=== PATIENT | male | born 1980 | race Caucasian/White ===

== ENCOUNTER 2024-10-12 22:04 | Emergency (ER) | payer MEDICAID, SELFPAY ==
--- OUTSIDE RECORDS SUMMARY | 2014-05-15 05:00 | XMS_ITS | Continuity of Care Document ---
Author Organization [facility] Address [address] [place] [address] Phone Care Team Providers Care Manager Human Capital Name Role Phone Solomon Sloan Unavailable Unavailable Allergies, Adverse Reactions, Alerts Substance Reaction Status Criticality aspirin Active No Information Medications Medication Instructions Dosage Effective Dates (start - stop) Status Comments methadone 10 mg/mL oral concentrate take 3 milliliter by oral route every 8 hours 30 MG - Active omeprazole 40 mg capsule,delayed release take 1 capsule by oral route every day 40 MG - Active Colace 100 mg capsule take 1 capsule by oral route 2 times every day as needed 100 MG - Active amitriptyline 50 mg tablet take 1 tablet by oral route every day at bedtime 50 MG - Active buspirone 15 mg tablet take 1 tablet by oral route 2 times every day 15 MG - Active Celexa 20 mg tablet take 1 Tablet by ora l route every day 20 MG - Active Procedures Procedure Date OFFICE/OUTPATIENT VISIT, NEW Results Test Name Date and Time Measure Units Reference Range Abnormal Flag Status Comments Panel Description: TSH+Free T4 Final TSH 07:36:00 0.826 uIU/mL 0.450-4.500 Final Performed by:LabBren Harrell () T4,Free(Direct) 07:36:00 1.22 ng/dL 0.82-1.77 Final Performed by:LabCojuliann Harrell () Panel Description: CBC With Differential/Platele t Final WBC 05:56:00 5.8 x10E3/uL 3.4-10.8 Final Performed by:Ladonna Harrell () RBC 15 05:56:00 4.34 x10E6/uL 4.14-5.80 Final Performed by:Ladonna Harrell () Hemoglobin 15 05:56:00 13.3 g/dL 12.6-17.7 Final Performed by:Ladonna Harrell () Hematocrit 15 05:56:00 39.8 % 37.5-51.0 Final Performed by:Ladonna Harrell () MCV 15 05:56:00 92 fL 79-97 Final Performed by:Ladonna Harrell () MCH 15 05:56:00 30.6 pg 26.6-33.0 Final Performed by:Ladonna Harrell () MCHC 15 05:56:00 33.4 g/dL 31.5-35.7 Final Performed by:Ladonna Harrell () RDW 15 05:56:00 13.9 % 12.3-15.4 Final Performed by:Ladonna Harrell () Platelets 15 05:56:00 187 x10E3/uL 150-379 Final Performed by:Ladonna Harrell () Neutrophils 15 05:56:00 56 % Final Performed by:Ladonna Harrell () Lymphs 15 05:56:00 33 % Final Performed by:Ladonna Harrell () Monocytes 15 05:56:00 8 % Final Performed by:Ladonna Harrell () Eos 15 05:56:00 2 % Final Performed by:Ladonna Harrell () Basos 15 05:56:00 1 % Final Performed by:Ladonna Harrell () Immature Cells 15 05:56:00 Final Performed by:Ladonna Harrell () Neutrophils (Absolute) 15 05:56:00 3.3 x10E3/uL 1.4-7.0 Final Performed by:Ladonna Harrell () Lymphs (Absolute) 05:56:00 2.0 x10E3/uL 0.7-3.1 Final Performed by:Ladonna Harrell () Monocytes(Absolut e) 05:56:00 0.4 x10E3/uL 0.1-0.9 Final Performed by:Ladonna Harrell () Eos (Absolute) 05:56:00 0.1 x10E3/uL 0.0-0.4 Final Performed by:Ladonna Harrell () Baso (Absolute) 05:56:00 0.0 x10E3/uL 0.0-0.2 Final Performed by:Ladonna Harrell () Immature Granulocytes 05:56:00 0 % Final Performed by:Ladonna Harrell () Immature Grans (Abs) 05:56:00 0.0 x10E3/uL 0.0-0.1 Final Performed by:Ladonna Harrell () NRBC 05:56:00 Final Performed by:Ladonna Harrell () Hematology Comments: 05:56:00 Final Performed by:Ladonna Harrell () Panel Description: Comp. Metabolic Panel (14) F inal Glucose, Serum 09:10:00 85 mg/dL 65-99 Final Performed by:Ladonna Harrell () BUN 09:10:00 13 mg/dL 6-20 Final Performed by:Ladonna Harrell () Creatinine, Serum 09:42:00 0.92 mg/dL 0.76-1.27 Final Performed by:Ladonna Harrell () eGFR If NonAfricn Am 09:42:00 110 mL/min/1 .73 >59 Final Performed by:Ladonna Harrell () eGFR If Africn Am 09:42:00 127 mL/min/1 .73 >59 Final Performed by:Ladonna Harrell () BUN/Creatinine Ratio Mar-26-20 15 09:42:00 14 8-19 Final Performed by:Ladonna Harrell () Sodium, Serum 08:56:00 141 mmol/L 134-144 Final Performed by:Ladonna Harrell () Potassium, Serum 08:56:00 4.6 mmol/L 3.5-5.2 Final Performed by:Ladonna Harrell () Chloride, Serum 08:56:00 100 mmol/L 97-108 Final Performed by:Ladonna Harrell () Carbon Dioxide, Total 09:42:00 26 mmol/L 18-29 Final Performed by:Ladonna Harrell () Calcium, Serum 08:56:00 9.3 mg/dL 8.7-10.2 Final Performed by:Ladonna Harrell () Protein, Total, Serum 09:10:00 7.2 g/dL 6.0-8.5 Final Performed by:Ladonna Harrell () Albumin, Serum 09:10:00 4.3 g/dL 3.5-5.5 Final Performed by:Ladonna Harrell () Globulin, Total 09:10:00 2.9 g/dL 1.5-4.5 Final Performed by:Ladonna Harrell () A/G Ratio 09:10:00 1.5 1.1-2.5 Final Performed by:Ladonna Harrell () Bilirubin, Total 09:10:00 0.4 mg/dL 0.0-1.2 Final Performed by:Ladonna Harrell () Alkaline Phosphatase, S 09:10:00 54 IU/L 39-117 Final Performed by:Ladonna Harrell () AST (SGOT) 09:10:00 73 IU/L 0-40 H Final Performed by:Ladonna Harrell () ALT (SGPT) 09:10:00 88 IU/L 0-44 H Final Performed by:Ladonna Harrell () Panel Description: Lipid Panel Final Cholesterol, Total 09:42:00 104 mg/dL 100-199 Final Performed by:Ladonna Harrell () Triglycerides 09:42:00 105 mg/dL 0-149 Final Performed by:Ladonna Harrell () HDL Cholesterol 09:42:00 47 mg/dL >39 Final According to ATP-III Guidelines, HDL-C >59 mg/dL is considered anegative risk factor for CHD.Performed by:Ladonna Harrell () VLDL Cholesterol Sandip 09:42:00 21 mg/dL 5-40 Final Performed by:Ladonna Harrell () LDL Cholesterol Calc 09:42:00 36 mg/dL 0-99 Final Performed by:Ladonna Harrell () Comment: 09:42:00 Final Performed by:Ladonna Harrell () Advance Directives Directive Yes / No Effective Date File Name No Information Encounters Encounter Description Practice Location Reason(s) For Visit Diagnoses Date Provider OFFICE/OUTPATI ENT VISIT, [facility], [address] [place] [address], [address], [place] tel:[phone] [facility] Yearly Physical (chief complaint)Po ssible Hernia (chief complaint) Hepatitis CAnxietyHernia of abdominal wallPhysical exam, routine [address] [place], [address], [place]. tel:[phone] Family History Family Member Type Diagnosis Age At Onset No Information Payers Payer name Insurance type Covered democrat ID Authoriza tion(s) Nereida [facility] Med [facility] [id number] [facility] [id number] Social History Type Description Quantity Date Captured Comments Alcohol Use Details No Caffeine Use Details soda 16 oz per day Tobacco Use Status Occasional cigarette smoker Smoking Status Heavy tobacco smoker Smoking Tobacco Use Details Cigarette: Age Started: 15, Years Used 19, Cigarette: 1 Packs per day, Pack Year: 18 Sex Male Vital Signs Date / Time: Height Weight BMI Pulse Rate Blood Pressure Temperature Respiratory Rate Body Surface Area Head Circumference Head Circ. Percentile Wt./Jabier. Percentile BMI percentile Pulse Ox Inhaled Ox 9:35 AM 72.00 in 76.748 kg (169.20 lbs) 22.9 5 kg/m eter (2) 67 /min 126/67 mm[Hg] 97.50 F 1.97 meter(2) Chief Complaint And Reason For Visit From encounter dated '05/15/2014 09:00'. Yearly Physical (chief complaint) Possible Hernia (chief complaint). Description: Possible hernia around navel. History Of Present Illness Encounter Date Complaint History Of Prese nt Illness Possible Hernia Possible hernia around navel. Yearly Physical Instructions Date Instruction Additional Infor heriberto No Information Assessments Type Assessment Date assessment Hepatitis C assessment Anxiety assessment Hernia of abdominal wall 2014 assessment Physical exam, routine 15 impression start buspar 15 mg b id, celexa 20 mg qd and amitryptiline 50 mg qhs. impression refer to general surgery 2014 impression check labs. Mental Status Date Cognitive Assessment Orientation - Rolla ed to time, place, person, situation.
--- OUTSIDE RECORDS SUMMARY | 2024-09-27 09:15 | XMS_ITS | Continuity of Care Document ---
Author Organization [facility] Address [address] [place] [phone] Phone Care Team Providers Care Information Security Consultant Name Role Phone Funmilayo Ogden DDS Unavailable Unavailable Allergies, Adverse Reactions, Alerts Substance Reaction Status Criticality No Known Allergies Active No Inform ation Procedures Procedure Date Bitewig-single Film Yubufhdbl-wqepaxcjsz-vpuf Additional Sep Oral Hygiene Instruction Limited Oral Eval Advance Directives Directive Yes / No Effective Date File Name No Information Encounters Encounter Description Practice Location Reason(s) For Visit Diagnoses Date Provider Providers Copied on Encounter [facility], [address] [place] [address], [id number], tel:[phone] Dental Clinic dl (chief complaint) No Information Melvi ESPAÑAS Funmilayo. . tel:[phone] [facility], [address] [place] [address], [id number], tel:[phone] Dental Clinic Encounter for screening for dental disorders Melvi ESPAÑAS Funmilayo. . tel:[phone] Family History Family Member Type Diagnosis Age At Onset No Information Payers Payer name Insurance type Covered alliance party ID Authorfainaa gopal(s) D [employer] Medicaid [employer] [facility] [id number] [id number] D Medicaid Wrap - [facility] [id number] Social History Type Description Quantity Date Captured Comments Alcohol Use Details Unknown Caffeine Use Details Unknown Tobacco Use Status No Information Smoking Status No Information Sex Male Chief Complaint And Reason For Visit From encounter dated 09/27/2024 13:15'. dl (chief complaint). Description: dl Reason For Referral Reason For Referral No Information Plan Of Treatment Date Type Action Status Goal PRAPARE ASSESSMENT. Due on A due Goal Lipid panel. Due on 025 due Goal Tdap Vaccine. Due on 2024 due Goal Hep A. Due on du e Goal Hepatitis C screening. Due o n due Goal Influenza vaccine. Due on Au due Goal Unhealthy drug use screening . Due on due Goal Tdap. Due on due Goal RLP. Due on due Goal Depression screening. Due on due History Of Present Illness Encounter Date Complaint History Of Prese nt Illness dl dl Functional Status Date Functional Assessmen t No Information Instructions Date Instruction Additional Infor mation No Information Assessments Type Assessment Date No Information Patient Care Teams Name Effective Dates (start - stop) Status Members No Information
--- OUTSIDE RECORDS SUMMARY | 2024-10-12 22:24 | XMS_ITS | Clinical Summary ---
Author Organization [facility] Address [address] [place] [address] Phone Care Team Providers Care Recording Studio Internship Name Role Phone Siddharth MIXON, Ry Unavailable [phone] Conditions or Problems No information available. Medications No information available. Medications Administered No information available. Allergies, Adverse Reactions, Alerts No information available. Results No information available. Plan of Care No information available. Procedures No information available. Vital Signs No information available. Immunizations No information available. Advance Directives No information available.
--- OUTSIDE RECORDS SUMMARY | 2024-10-12 22:24 | XMS_ITS | Encounter Summary ---
Author Organization [facility] Address [address] [place] [address] Phone Care Team Providers Care Residential Energy Auditor Name Role Phone Ry Messina MD Unavailable [phone] Pcp, None Primary Care Provider [phone] Jace Jacome MD Primary Care Provider [phone] Jace Jacome MD Primary Care Provider [phone] Encounter Details Date Type Department Care Team (Late st Contact Info) Description 12/06/2022 Orders Only [facility] E[facility] [address] [place] [address] Cierra Britt Chest pain, unspecified type Social History Tobacco Use Types Packs/Day Years Used Date Smoking Tobacco: Every Day Cigarettes Smokeless Tobacco: Current Snuff Alcohol Use Standard Drinks/Week Comments Not Currently 0 (1 standard drink = 0.6 oz pur e alcohol) sober since 2006 Sex and Gender Information Value Date Recorded Sex Assigned at Not on file Legal Sex Male 7:10 PM EDT Gender Identity Male 06/02/2018 10:31 PM EDT Sexual Orientation Not on file COVID-19 Exposure Response Date Recorded In the last 10 days, have yo u been in contact with someone who was confirmed or suspected to have Coronavirus/COVID-19? No / Unsure 12/04/2022 1:30 AM EDT documented as of this encounter Functional Status * Are you deaf or do you have serious difficulty hearing? Answer Date of Assessment Author No 12/04/2022 6:03 AM EDT Peyton Brunson Registered Nurse * Are you blind or do you have serious difficulty seeing, even when wearing glasses? Answer Date of Assessment Author No 12/04/2022 6:03 AM EDT Peyton Brunson Registered Nurse * Do you have serious difficulty walking or climbing stairs? (5 years old or older) Answer Date of Assessment Author No 12/04/2022 6:03 AM EDT Peyton Brunson Registered Nurse * Do you have difficulty dressing or bathing? (5 years old or older) Answer Date of Assessment Author No 12/04/2022 6:03 AM EDT Peyton Brunson Registered Nurse * Because of a physical, mental, or emotional condition, do you have difficulty doing errands alone such as visiting a doctor???s office or shopping? (15 years old or older) Answer Date of Assessment Author No 12/04/2022 6:03 AM EDT Peyton Brunson Registered Nurse documented as of this encounter Mental Status * Because of a physical, mental, or emotional condition, do you have serious difficulty concentrating, remembering, or making decisions? (5 years old or older) Answer Entry Date Author No 12/04/2022 6:03 AM EDT Peyton Brunson Registered Nurse documented in this encounter Plan of Treatment Not on file documented as of this encounter Procedures Procedure Name Priority Date/Time Associated Diagnosis Comments ECG 12-LEAD Routine 12/04/2022 2:03 AM EDT Chest pain, unspecified type documented in this encounter Results * ECG 12 lead (12/04/2022 2:03 AM EDT) Height in TH TRACEMASTER HEART RATE 63 bpm TH TRACEMASTER RR INTERVAL 948 ms TH TRACEMASTER ATRIAL RATE 61 ms TH TRACEMASTER P-R Interval 437 ms TH TRACEMASTER P Duration 190 ms TH TRACEMASTER P HORIZONTAL 38 deg TH TRACEMASTER P FRONT AXIS 55 deg TH TRACEMASTER Q Onset 502 ms TH TRACEMASTER QRSD Interval 173 ms TH TRACEMASTER QT INTERVAL 488 ms TH TRACEMASTER QTCB 501 ms TH TRACEMASTER QTcF 497 ms TH TRACEMASTER QRS [place] 100 deg TH TRACEMASTER QRS AXIS 44 deg TH TRACEMASTER I-40 [place] 45 deg TH TRACEMASTER I-40 FRONT AXIS 71 deg TH TRACEMASTER T-40 [place] 148 deg TH TRACEMASTER T-40 [place] 195 deg TH TRACEMASTER T [place] 250 deg TH TRACEMASTER T WAVE AXIS 217 deg TH TRACEMASTER S-T [place] 240 deg TH TRACEMASTER S-T [place] 247 deg TH TRACEMASTER ECG IMPRESSION - ABNORMAL ECG - TH TRACEMASTER ECG IMPRESSION SR-Sinus rhythm-normal P axis, V-rate 50-99 TH TRACEMASTER ECG IMPRESSION VPC-Ventricul ar premature complex-V complex w/ short R-R interval TH TRACEMASTER ECG IMPRESSION 1AVB-Prolonge d RI interval-RI >210, V-rate 50-90 TH TRACEMASTER ECG IMPRESSION RBBB-Right bundle branch block-QRSd>12 0, terminal axis(90,270) TH TRACEMASTER ECG IMPRESSION REPIDI-Repol abnrm suggests ischemia, diffuse leads-ST-T neg, ant/lat/inf TH TRACEMASTER ECG IMPRESSION QMBW-Baseline wander in lead(s) V4- TH TRACEMASTER ECGGUID [id number] TH TRACEMASTER ECGGUID [id number] TH TRACEMASTER 12/04/2022 2:03 AM EDT us Grabiel Ragland Jr., MD ECG ORDERABLES Fin al Result TH TRACEMASTER documented in this encounter Visit Diagnoses Diagnosis Chest pain, unspecified type documented in this encounter Additional Health Concerns Infection Onset Date Last Indicated Resolved Time COVID-19 Suspect 09/17/2023 09/17/2023 09/17/2023 2:29 AM EDT documented as of this encounter Care Teams Residential Energy Auditor Relationship Specialty Start Date End Date Pcp, None, PCP - General Internal Medicine 12/04/22 04/18/23 Jace Jacome MD PCP - General Internal Medicine 04/19/23 05/02/24 Jace Jacome MD PCP - General Internal Medicine 05/03/24 Ry Messina MD Neurosurgery 06/30/20 documented as of this encounter
--- OUTSIDE RECORDS SUMMARY | 2024-10-12 22:24 | XMS_ITS | Encounter Summary ---
Author Organization [facility] Address [address] [place] [address] Care Team Providers Care Radiologic Technologist Chief Name Role Phone Pcp, No Primary Care Provider Source Comments This information has been disclosed to you from confidential records protectfrom disclosure by state law. You shall make no further disclosure of thisinformation without the specific, written, and informed release of theindividual to whom it pertains, or as otherwise permitted by law. A generalauthorization for the release of medical or other information is not sufficientfor the purposes of the release of HIV test results or diagnoses. [id number] Health Encounter Details Date Type Department Care Team (Latest Contact Info) Description 07/31/2024 Results Follow-Up [facility] Psychiatry at [facility] [address] [place] [address] Delmis Burns, [employer] [address] [place] [address] Urine Drug Confirmation w/o [facility] Social History Tobacco Use Types Packs/Day Years Used Date Smoking Tobacco: Every Day Cigarettes 1.5 30 Smokeless Tobacco: Current Chew Alcohol Use Standard Drinks/Week Comments Not Currently 0 (1 standard drink = 0.6 oz pur e alcohol) None since September 06, 2006 AUDIT-C Answer Date Recorded Q1: How often do you have a drink containing alc ohol? Patient declined 05/18/2024 Q2: How many drinks containi ng alcohol do you have on a typical day when you are drinking? Patient declined 05/18/2024 Q3: How often do you have si x or more drinks on one occasion? Patient declined 05/18/2024 PHQ-2 Answer Date Recorded PHQ-2 Total Score 3 07/27/2024 Hunger Vital Sign Answer Date Recorded Within the past 12 months, y ou worried that your food would run out before you got the money to buy more. Never true 06/27/19 22 Within the past 12 months, t he food you bought just didn't last and you didn't have money to get more. Never true 06/26/2021 Sex and Gender Information Value Date Recorded Sex Assigned at Male 11/11/2020 12:16 PM EDT Legal Sex Male 5:15 PM EST Gender Identity Male 11/11/2020 12:16 PM EDT Sexual Orientation Straight 06/24/2021 12 :10 PM EDT documented as of this encounter Plan of Treatment Not on file documented as of this encounter Visit Diagnoses Not on filedocumented in this encounter Additional Health Concerns Assessment Noted Time PHQ-9 Depression Total Score: 16 025 12:27 PM EDT documented as of this encounter Care Teams Radiologic Technologist Chief Relationship Specialty Start Date End Date Pcp, No [address] [place] [address] PCP - General 05/21/22 documented as of this encounter
--- OUTSIDE RECORDS SUMMARY | 2024-10-12 22:24 | XMS_ITS | Clinical Summary ---
Author Organization [facility] Address [address] [place] [address] Care Team Providers Care Permanent Mold Supervisor Name Role Phone Pcp, No Primary Care Provider [phone] Source Comments This information has been disclosed to you from confidential records protectedfrom disclosure by state law. You shall make no further disclosure of thisinformation without the specific, written, and informed release of theindividual to whom it pertains, or as otherwise permitted by law. A generalauthorization for the release of medical or other information is not sufficientfor the purposes of therelease of HIV test results or diagnoses. [id number] Allergies Active Allergy Reactions Criticality Noted Date Comments Propoxyphene N-Acetaminophen Nausea And Vomiting,Rash Low 12/07/2017 Ondansetron Hcl Rash Low 06/25/2021 Propoxyphene Nausea And Vomiting,Rash Low 12/10/2017 Darvocet (propoxyphene-aceta minophen) Darvocet (propoxyphene-aceta minophen) Medications catheter 6-16 Fr- MiscIndications :Dysuria Use as directed by your urologist. 530 each 03/05/2023 Active buprenorphine HCL (SUBUTEX) [address] 20 mg under the tongue daily. Place 2.5 tablets daily under the tongue, may split dose. 07/18/2024 Active Active Problems Problem Noted Date Diagnosed Date History of posttraumatic stress disorder (PTSD) 08/03/2024 Polysubstance (excluding opioids) dependence 03/2023 Chest pain 04/21/2023 Chronic hepatitis C without hepatic coma 022 Elevated liver enzymes 06/26/2021 Substance-induced psychotic disorder 02/04/2018 Substance induced mood disorder 02/01/2018 Closed fracture of metacarpal bone 07/15/2009 Overview (11/20/2014): third left hand ICD-10 Transition Encounters Date Type Department Care Team Description 08/26/2024 1:45 AM EDT - 08/26/2024 4:42 AM EDT Emergency [facility] Emergency Department [address] [place], [place] [address]Michel[place] [address] Encounter for medical screening examination (Primary Dx) Discharge Disposition: ED Dismiss - Left Before Treatment 08/26/2024 Travel 08/06/2024 Telephone [facility] Psychiatry at [address] [address] Rosario Julien 08/03/2024 2:13 PM EDT - 08/03/2024 2:55 PM EDT Emergency [facility] Emergency Department [address] [place] [address] Substance-induced psychotic disorder (CMS-HCC) (Primary Dx); Polysubstance (excluding opioids) dependence (CMS-HCC); Other chest pain; History of posttraumatic stress disorder (PTSD) Discharge Disposition: Home or Self Care WITHOUT Home Care Services 08/03/2024 5:15 AM EDT - 08/03/2024 1:21 PM EDT Emergency [facility] Emergency Department [address] [place] [id number] Ab Wilde MD Paranoimarlene (CMS-HCC) (Primary Dx) Discharge Disposition: Psychiatric Hospital or Unit 08/03/2024 Travel 07/31/2024 Results Follow-Up [facility] Psychiatry at [facility] [address] [place] [address] Delmis Burns APRN Urine Drug Confirmation w/o THC 07/31/2024 Refill [facility] Psychiatry at [facility] [address] [place] [address] Delmis Burns APRN 07/27/2024 10:50 AM EDT Specimen [facility] [address] [facility] [address] [place] [phone] Delmis Burns APRN Generalized anxiety disorder with panic attacks 07/27/2024 9:00 AM EDT Office Visit [facility] Psychiatry at [facility] [address] [facility] [address] [place] [address] Delmis Burns APRN Generalized anxiety disorder with panic attacks (Primary Dx); Mild episode of recurrent major depressive disorder (CMS-HCC); PTSD (post-traumatic stress disorder); Insomnia, unspecified type; Substance use disorder from Last 3 Months Family History Medical History Relation Comments Bipolar disorder Mother Panic disorder Mother Post-traumatic stress disorder Mother Relation Status Comments Brother 1 Alive Brother 2 Alive Father Mother Alive Sister Alive Social History Tobacco Use Types Packs/Day Years Used Date Smoking Tobacco: Every Day Cigarettes 1.5 30 Smokeless Tobacco: Current Chew Tobacco Cessation:Ready to Q uit: Not Asked; Counseling Given: Not Answered Alcohol Use Standard Drinks/Week Comments Not Currently [...] Orientation Straight 06/24/2021 12 :10 PM EDT Last Filed Vital Signs Vital Sign Reading Time Taken Comments Blood Pressure 178/106 08/26/2024 1:50 AM EDT Pulse 111 08/26/2024 1:50 AM EDT Temperature 37.3 C (99.2 F) 08/26/2024 1:50 AM EDT Respiratory Rate 20 08/26/2024 1:50 AM EDT Oxygen Saturation 98% 08/26/2024 1:50 AM EDT Inhaled Oxygen Concentration 98% 08/26/2024 1 :50 AM EDT Weight 117.5 kg (259 lb) 07/27/2024 9:09 AM EDT Height 180.3 cm (5' 11 ) 07/27/2024 9:09 AM EDT Body Mass Index 36.12 07/27/2024 9:09 AM EDT Plan of Treatment Health Maintenance Due Date Last Done Comments Immunization: Pneumococcal ( 1 of 2 - PCV) 2000 Tobacco Cessation Readiness 04/17/2022 04/17/2021 Immunization: COVID-19 ( season) 2023 04/02/2020, 03/12/2020 Diabetes Screening 04/20/2024 04/21/2023 Immunization: Influenza (MyC hutchinson) (#1) 2024 Depression Monitoring (PHQ-9) 10/27/2024 07/27/2024 Immunization: DTaP/Tdap/Td ( 5 - Td or Tdap) 12/05/2029 12/06/2019, 07/22/1983, 10/21/1982, Additional history exists HIV Screening Completed 04/21/2023, 03/24, 03/17/2023, Additional history exists Procedures Procedure Name Priority Date/Time Associated Diagnosis Comments EKG - SCAN 08/04/2024 12:40 PM EDT URINALYSIS, MICROSCOPIC STAT 08/03/2024 1:12 PM EDT URINE DRUG SCREEN WITHOUT CONFIRMATION, STAT STAT 08/03/2024 1:12 PM EDT URINALYSIS-MACROSCOPI C W/REFLEX TO MICROSCOPIC STAT 08/03/2024 1:12 PM EDT HIGH SENSITIVITY TROPONIN STAT 08/03/2024 8:04 AM EDT MAGNESIUM STAT 08/03/2024 6:41 AM EDT HIGH SENSITIVITY TROPONIN STAT 08/03/2024 6:41 AM EDT HEPATIC FUNCTION PANEL STAT 08/03/2024 6:41 AM EDT BASIC METABOLIC PANEL STAT 08/03/2024 6:41 AM EDT DIFFERENTIAL STAT 08/03/2024 6:41 AM EDT CBC STAT 08/03/2024 6:41 AM EDT XR PORTABLE CHEST RICH 08/03/2024 6:1 4 AM EDT ED ECG 12-LEAD (MUSE) STAT 08/03/2024 5:39 AM EDT URINE DRUG CONFIRMATION W/O THC Routine 07/27/2024 11:08 AM EDT Generalized anxiety disorder with panic attacks HEMOGLOBIN A1C Routine 04/21/2023 9:11 AM EST HIV 1+2 ANTIBODY/ANTIGEN WITH REFLEX Routine 04/21/2023 2:37 AM EST from Last 3 Months or Most Recently Relevant to Health Maintenance Results * EKG - scan (08/04/2024 12:40 PM EDT) us Scanning Uchhi SCAN DOCS - NO RESULTS Final Res ult * (ABNORMAL) Urinalysis, Microscopic (08/03/2024 1:12 PM EDT) RBC, UA 2 0 - 3 /HPF 08/03/2024 2:49 PM EDT [facility] WBC, UA 2 0 - 5 /HPF 08/03/2024 2:49 PM EDT [facility] Bacteria, UA Few(A) None Seen /HPF 08/03/2024 2:49 PM EDT [facility] Hyaline Casts, UA 5(H) 0 - 2 /LPF 08/03/2024 2:49 PM EDT [facility] Mucus, UA Present(A) None Seen /HPF 08/03/2024 2:49 PM EDT [facility] Amorphous, UA Present(A) None Seen /HPF 08/03/2024 2:49 PM EDT [facility] Urine 08/03/2024 1:12 PM EDT 08/03/2024 1:21 PM EDT us Gabriella Levy MD URINE ORDERABLES Final Result [facility] [address] [id number], [facility] * (ABNORMAL) Urinalysis-Macroscopic w/Rfx to Microsco (08/03/2024 1:12 PM EDT) Color, UA Yellow Yellow,Straw 08/03/2024 3:19 PM EDT [facility] Clarity, UA Clear Clear 08/03/2024 3:19 PM EDT [facility] Specific Fisk, UA >=1.030 1.005 - 1.035 08/03/2024 3:19 PM EDT [facility] pH, UA 5.5 5.0 - 8.0 08/03/2024 3:19 PM EDT [facility] Protein, UA 30 mg/dL(A) Negative mg/dL 08/03/2024 3:19 PM EDT [facility] Glucose, UA Negative Negative mg/dL 08/03/2024 3:19 PM EDT [facility] Ketones, UA 15 mg/dL(A) Negative mg/dL 08/03/2024 3:19 PM EDT [facility] Bilirubin, UA Negative Negative 08/03/2024 3:19 PM EDT [facility] Blood, UA Negative Negative 08/03/2024 3:19 PM EDT [facility] Nitrite, UA Negative Negative 08/03/2024 3:19 PM EDT [facility] Urobilinogen, UA 0.2 E.U./dL 0.2 - 1.0 EU/dL 08/03/2024 3:19 PM EDT [facility] Leukocyte Esterase, UA Negative Negative 08/03/2024 3:19 PM EDT [facility] Urine 08/03/2024 1:12 PM EDT 08/03/2024 1:19 PM EDT Gabriella Levy MD URINE ORDERABLES Final Result Performing Organization Address City/State/[facility] Co de Phone Number [facility] [address] [place] [address], [facility] * (ABNORMAL) Urine Drug Screen w/o Confirmation,Stat (08/03/2024 1:12 PM EDT) Fentanyl, 5 ng/ml Cutoff Negative Negative 08/03/2024 1:55 PM EDT [facility] Amphetamine, 500 ng/mL Cutoff Presumptive Positive(A) Negative 08/03/2024 1:55 PM EDT [facility] Barbiturates UR, 300 ng/mL Cutoff Negative Negative 08/03/2024 1:55 PM EDT [facility] Buprenorphine, 5 ng/mL Cutoff Presumptive Positive(A) Negative 08/03/2024 1:55 PM EDT [facility] Benzodiazepines UR, 300 ng/mL Cutoff Presumptive Positive(A) Negative 08/03/2024 1:55 PM EDT [facility] Cocaine UR, 300 ng/mL Cutoff Negative Negative 08/03/2024 1:55 PM EDT [facility] Methadone, UR, 300 ng/mL Cutoff Negative Negative 08/03/2024 1:55 PM EDT [facility] Opiates UR, 300 ng/mL Cutoff Negative Negative 08/03/2024 1:55 PM EDT [facility] Oxycodone, 100 ng/mL Cutoff Negative Negative 08/03/2024 1:55 PM EDT [facility] Tricyclic Antidepressants, 300 ng/mL Cutoff Negative Negative 08/03/2024 1:55 PM EDT [facility] Comment:This test has been d eveloped and its performance characteristics determined by [facility] which is certified under the Clinical Laboratory Improvement Amendment of 1988 (CLIA-88) to perform high complexity testing. The test has not been cleared or approved by the US Food and Drug Administration (FDA). The FDA has determined that such clearance is not necessary. The test should be used for clinical purposes and is not regarded as investigational. THC UR, 50 ng/mL Cutoff Negative Negative 08/03/2024 1:55 PM EDT [facility] Comment:This is a screening method only and may be associated with false positive and/or false negative results. Results are not definitive without additional confirmatory testing by mass spectrometry. Urine 08/03/2024 1:12 PM EDT 08/03/2024 1:22 PM EDT Gabriella Levy MD URINE ORDERABLES Final Result Performing Organization Address [facility] de Phone Number [facility] [address] [place] [address]. [address] * High Sensitivity Troponin (60min) (08/03/2024 8:04 AM EDT) Only the most recent of2 resultswithin the time period is included. Pathologist [facility] High Sensitivity Troponin 4 0 - 20 ng/L 08/03/2024 8:47 AM EDT [facility] Serum 08/03/2024 8:04 AM EDT 08/03/2024 8:14 AM EDT Narrative [facility] - 08/03/2024 8:47 AM EDT Please draw 60min after time that first troponin is drawn. Gabriella Levy MD LAB BLOOD ORDERABLES Final Resul t Performing Organization Address City/[facility] de Phone Number [facility] [address] [place] [address]. [address] * Hepatic Function Panel (08/03/2024 6:41 AM EDT) Total Bilirubin 0.4 0.0 - 1.5 mg/dL 08/03/2024 7:22 AM EDT [facility] Bilirubin, Direct 0.09 0.00 - 0.40 mg/dL 08/03/2024 7:22 AM EDT [facility] AST 30 13 - 39 U/L 08/03/2024 7:22 AM EDT [facility] ALT 16 7 - 52 U/L 08/03/2024 7:22 AM EDT [facility] Alkaline Phosphatase 70 36 - 125 U/L 08/03/2024 7:22 AM EDT [facility] Total Protein 7.5 6.4 - 8.9 g/dL 08/03/2024 7:22 AM EDT [facility] Albumin 4.5 3.5 - 5.7 g/dL 08/03/2024 7:22 AM EDT [facility] Bilirubin, Indirect 0.31 0.00 - 1.10 mg/dL 08/03/2024 7:22 AM EDT [facility] Plasma 08/03/2024 6:41 AM EDT 08/03/2024 6:49 AM EDT us Gabriella Levy MD LAB BLOOD ORDERABLES Final Resul t [facility] [address] * (ABNORMAL) Differential (08/03/2024 6:41 AM EDT) Neutrophils Relative 80.7(H) 40.0 - 80.0 % 08/03/2024 6:59 AM EDT [facility] Lymphocytes Relative 12.6(L) 15.0 - 45.0 % 08/03/2024 6:59 AM EDT [facility] Monocytes Relative 5.6 0.0 - 12.0 % 08/03/2024 6:59 AM EDT [facility] Eosinophils Relative 0.7 0.0 - 8.0 % 08/03/2024 6:59 AM EDT [facility] Basophils Relative 0.4 0.0 - 1.0 % 08/03/2024 6:59 AM EDT [facility] nRBC 0 0 - 0 /100 WBC 08/03/2024 6:59 AM EDT [facility] Neutrophils Absolute 3,954 1,520 - 8,640 /uL 08/03/2024 6:59 AM EDT [facility] Lymphocytes Absolute 617 570 - 4,860 /uL 08/03/2024 6:59 AM EDT [facility] Monocytes Absolute 274 0 - 1,296 /uL 08/03/2024 6:59 AM EDT [facility] Eosinophils Absolute 34 0 - 864 /uL 08/03/2024 6:59 AM EDT [facility] Basophils Absolute 20 0 - 108 /uL 08/03/2024 6:59 AM EDT [facility] Whole Blood 08/03/2024 6:41 AM EDT 08/03/2024 6:49 AM EDT us Gabriella Levy MD LAB BLOOD ORDERABLES Final Resul t [facility] [address] [place] [address], [facility] * (ABNORMAL) CBC (08/03/2024 6:41 AM EDT) WBC 4.9 3.8 - 10.8 10E3/uL 08/03/2024 6:59 AM EDT [facility] RBC 4.26 4.20 - 5.80 10E6/uL 08/03/2024 6:59 AM EDT [facility] Hemoglobin 12.9(L) 13.2 - 17.1 g/dL 08/03/2024 6:59 AM EDT [facility] Hematocrit 36.6(L) 38.5 - 50.0 % 08/03/2024 6:59 AM EDT [facility] MCV 85.8 80.0 - 100.0 fL 08/03/2024 6:59 AM EDT [facility] MCH 30.2 27.0 - 33.0 pg 08/03/2024 6:59 AM EDT [facility] MCHC 35.2 32.0 - 36.0 g/dL 08/03/2024 6:59 AM EDT [facility] RDW 13.8 11.0 - 15.0 % 08/03/2024 6:59 AM EDT [facility] Platelets 165 140 - 400 10E3/uL 08/03/2024 6:59 AM EDT [facility] MPV 9.0 7.5 - 11.5 fL 08/03/2024 6:59 AM EDT [facility] Whole Blood 08/03/2024 6:41 AM EDT 08/03/2024 6:49 AM EDT Gabriella Levy MD LAB BLOOD ORDERABLES Final Resul t [facility] [address] [facility] * Magnesium (08/03/2024 6:41 AM EDT) Magnesium 2.0 1.5 - 2.5 mg/dL 08/03/2024 7:22 AM EDT [facility] Plasma 08/03/2024 6:41 AM EDT 08/03/2024 6:49 AM EDT Gabriella Levy MD LAB BLOOD ORDERABLES Final Resul t Performing Organization Address [facility] Co de Phone Number [facility] [address] [facility] * (ABNORMAL) Basic metabolic panel (08/03/2024 6:41 AM EDT) Sodium 142 133 - 146 mmol/L 08/03/2024 7:22 AM EDT [facility] Potassium 3.6 3.5 - 5.3 mmol/L 08/03/2024 7:22 AM EDT [facility] Chloride 106 98 - 110 mmol/L 08/03/2024 7:22 AM EDT [facility] CO2 25 21 - 33 mmol/L 08/03/2024 7:22 AM EDT [facility] Anion Gap 11 3 - 16 mmol/L 08/03/2024 7:22 AM EDT [facility] BUN 17 7 - 25 mg/dL 08/03/2024 7:22 AM EDT [facility] Creatinine 0.89 0.60 - 1.30 mg/dL 08/03/2024 7:22 AM EDT [facility] Glucose 106(H) 70 - 100 mg/dL 08/03/2024 7:22 AM EDT [facility] Calcium 9.5 8.6 - 10.3 mg/dL 08/03/2024 7:22 AM EDT [facility] Osmolality, Calculated 296 278 - 305 mOsm/kg 08/03/2024 7:22 AM EDT [facility] EGFR >90 08/03/2024 7:22 AM EDT [facility] Comment: As of 2021, the estimated GFR is calculated using the 2020 Chronic Kidney Disease Epidemiology Collaboration (CKD-EPI) equation. In line with the NKF-ASN Task Force Recommendations, this equation does not include a coefficient for race. A single eGFR value is calculated for each patient. The reference interval is >60 mL/min/1.73m2. eGFR values greater than 90 will be reported as >90mL/min/1.73m2. Reference: Simon C, Deo M, Stanley DC, Eugene [place], Tyler [place], Valerie [place], et al. A Unifying Approach for GFR Estimation: Recommendations of the NKF-ASN Task Force on Reassessing the inclusion of Race in Diagnosing Kidney Disease. Am J Kidney Dis. 2020. GFR is estimated using creatinine, age, and sex. Patient's values should be interpreted as a trend. Below 90 mL/min/1.73m2, the patient may have renal disease. For additional information: www.kidney.org Plasma 08/03/2024 6:41 AM EDT 08/03/2024 6:49 AM EDT Gabriella Levy MD LAB BLOOD ORDERABLES Final Resul t [facility] [address] [place], [place] [address] * X-ray Portable Chest (08/03/2024 6:14 AM EDT) Anatomical Region Laterality Modality Chest Radiographic Brenda ging 08/03/2024 5:38 AM EDT Impressions 08/03/2024 6:56 AM EDT IMPRESSION: No acute cardiopulmonary abnormality. Approved by [place] Galicia DO on 08/03/2024 6:24 AM EDT I have personally reviewed the images and I agree with this report. Report Verified by: Valentín Hall DO at 08/03/2024 6:56 AM EDT Narrative 08/03/2024 6:56 AM EDT EXAM: XR PORTABLE CHEST INDICATION: Chest pain, unspecified TECHNIQUE: 1 view of the chest. COMPARISON: 04/30/2024 FINDINGS: Medical Devices: None. Heart and Mediastinum: Cardiomediastinal silhouette is within normal limits. Lungs and Pleura: Hypoexpanded lungs with mild bibasilar parenchymal opacities, likely atelectasis. No pleural effusions or evidence for pneumothorax. Bones and soft tissues: No acute abnormalities. Procedure Note Gilson Hall DO - 08/03/2024 EXAM: XR PORTABLE CHEST INDICATION: Chest pain, unspecified TECHNIQUE: 1 view of the chest. COMPARISON: 04/30/2024 FINDINGS: Medical Devices: None. Heart and Mediastinum: Cardiomediastinal silhouette is within normallimits. Lungs and Pleura: Hypoexpanded lungs with mild bibasilar parenchymalopacities, likely atelectasis. No pleural effusions or evidence forpneumothorax. Bones and soft tissues: No acute abnormalities. IMPRESSION: No acute cardiopulmonary abnormality. Approved by [place] Galicia DO on 08/03/2024 6:24 AM EDT I have personally reviewed the images and I agree with this report. Report Verified by: Valentín Hall DO at 08/03/2024 6:56 AM EDT us Gabriella Levy MD IMG DIAGNOSTIC IMAGING ORDERABLE S Final Result * ECG for indication of chest pain (08/03/2024 5:39 AM EDT) 08/03/2024 5:39 AM EDT Narrative MUSE - 08/03/2024 8:14 AM EDT Ventricular Rate: 133 BPM Atrial Rate: 133 BPM P-R Interval: 136 ms QRS Duration: 82 ms QT: 390 ms QTc: 580 ms P [place]: 58 degrees R [place]: 45 degrees T [place]: 73 degrees Diagnosis Line: ^ INTERPRETATION NOT AVAILABLE--ECG READ IN ER ^ Confirmed by PHYSICIAN, ER ([id number]), business editor Vickie Chi ([id number]) on 08/03/2024 8:13:59 AM us Gabriella Levy MD ECG ORDERABLES Final Result MUSE * Urine Drug Confirmation w/o THC (07/27/2024 11:08 AM EDT) BARBITURATES NOT PRESENT 07/31/2024 1:58 PM EDT [facility] BENZODIAZEPINES PRESENT 5 1:58 PM EDT [facility] Nordiazepam 9 ng/mL 07/31/2024 1:58 PM EDT [facility] Oxazepam 122 ng/mL 07/31/2024 1:58 PM EDT [facility] Temazepam 11 ng/mL 07/31/2024 1:58 PM EDT [facility] LEVEL VIAL INSIDE GRINDER STIMULANTS NOT PRESENT 5 1:58 PM EDT [facility] OPIOID ANALGESICS NOT PRESENT 2024 1:58 PM EDT [facility] OPIOID ANTAGONISTS PRESENT 2024 1:58 PM EDT [facility] Buprenorphine >200 ng/mL 07/31/2024 1:58 PM EDT [facility] Norbuprenorphine >200 ng/mL 08/01/19 25 1:58 PM EDT [facility] SEDATIVES/MUSCLE RELAXANTS NOT PRESENT 07/31/2024 1:58 PM EDT [facility] TRICYCLIC ANTIDEPRESSANTS NOT PRESENT 07/31/2024 1:58 PM EDT [facility] Creatinine, Ur 166.50 mg/dL 07/30/2024 11:50 AM EDT [facility] Comment:Reference range not established for this test. pH 6.4 4.7 - 7.8 07/30/2024 11:50 AM EDT [facility] Specific [place]isk 1.028 1.003 - 1.035 07/30/2024 11:50 AM EDT [facility] Urine 07/27/2024 11:0 8 AM EDT 07/28/2024 4:24 PM EDT Narrative [facility] - 07/31/2024 1:58 PM EDT This test has been developed and its performance characteristics determined by [facility] which is certified under the Clinical Laboratory Improvement Amendment of 1988 (CLIA-88) to perform high complexity testing. The test has not been cleared or approved by the US Food and Drug Administration (FDA). The FDA has determined that such clearance is not necessary. The test should be used for clinical purposes and is not regarded as investigational. Delmis Burns SUPERVISOR SAFETY DEPOSIT URINE ORDERABLES Final Res ult Performing Organization Address [facility] Co de Phone Number [facility] [address] [facility]. [address] * Hemoglobin A1C (04/21/2023 9:11 AM EST) Hemoglobin A1C 5.4 4.0 - 5.6 % 04/22/2023 8:36 PM EST [facility] Comment: Hemoglobin A1c Interpretation Guidelines: Normal: <5.7% Prediabetes: 5.7-6.4% Diabetes: >6.4% Diagnosis requires two independent tests unless clinical diagnosis is clear. Some clinical conditions, particularly anemias and hemoglobinopathies, may interfere with the diagnostic accuracy of hemoglobin A1c. The recommended goal for diabetic glycemic control (Hemoglobin A1c <7.0%) should be individualized based on duration of diabetes, age/life expectancy, comorbid conditions, known CVD or advanced microvascular complications, hypoglycemia unawareness, and other individual patient considerations. Whole Blood 04/21/2023 9:11 AM EST 04/22/2023 3:51 PM EST Madeline Serna MD LAB BLOOD ORDERABLES Final Res ult Performing Organization Address [facility] de Phone Number [facility] [address] * HIV 1+2 Antibody/Antigen with Reflex (04/21/2023 2:37 AM EST) HIV 1+2 AB/AGN Nonreactive Nonreactive 04/21/2023 5:04 AM EST [facility] Serum 04/21/2023 2:37 AM EST 04/21/2023 2:40 AM EST Narrative [facility] - 04/21/2023 5:04 AM EST HIV-1 p24 Antigen and HIV-1/HIV-2 Antibody not detected. Madeline Serna MD LAB BLOOD ORDERABLES Final Res ult [facility] [address] [place] [address], [facility] from Last 3 Months or Most Recently Relevant to Health Maintenance Insurance [facility] Variable [facility] Advance Directives For more information, please contact: [phone] Documents on File Type Date Recorded Patient Printer Apprentice Expl anation Advance Directive - scan 05/21/2012 3:34 PM 2012 * Full Code (Latest Code Status on File) Date Activated Date Inactivated Comments 12/27/2023 11:55 PM 12/28/2023 7:09 AM * Full Code Date Activated Date Inactivated Comments 04/21/2023 12:38 AM 04/22/2023 12:03 AM * Full Code Date Activated Date Inactivated Comments 04/05/2023 4:44 PM 04/05/2023 10:02 PM * Full Code Date Activated Date Inactivated Comments 04/05/2023 4:09 AM 04/05/2023 5:09 AM * Full Code Date Activated Date Inactivated Comments 05/12/2022 6:05 PM 05/13/2022 5:10 AM Care Teams Permanent Mold Supervisor Relationship Specialty Start Date End Date Pcp, No [address] [place] [address] PCP - General 05/21/22
--- OUTSIDE RECORDS SUMMARY | 2024-10-12 22:24 | XMS_ITS | Encounter Summary ---
Author Organization [facility] Address [address] [place] [address] Phone Care Team Providers Care Supervisor Ski Production Name Role Phone Pcp, None Primary Care Provider Harshil Sequeira MD, George Shea Primary Care Provider Ry Messina MD Unavailable Pcp, None Primary Care Provider Jace Jacome MD Primary Care Provider [phone] Pcp, None Primary Care Provider Jace Jacome MD Primary Care Provider [phone] Jace Jacome MD Primary Care Provider [phone] Encounter Details Date Type Department Care Team (Late st Contact Info) Description 01/04/2020 Discharge Call Center Patient Call Center [address] [place] [id number] Social History Tobacco Use Types Packs/Day Years Used Date Smoking Tobacco: Former Cigarettes Smokeless Tobacco: Current Snuff Alcohol Use Standard Drinks/Week Comments Not Currently 0 (1 standard drink = 0.6 oz pur e alcohol) Sex and Gender Information Value Date Recorded Sex Assigned at Not on file Legal Sex Male 7:10 PM EDT Gender Identity Male 06/02/2018 10:31 PM EDT Sexual Orientation Not on file COVID-19 Exposure Response Date Recorded In the last month, have you been in contact with someone who was confirmed or suspected to have Coronavirus / COVID-19? No / Unsure 01/05/2020 9:12 PM EST documented as of this encounter Functional Status * Are you deaf or do you have serious difficulty hearing? Answer Date of Assessment Author No 11/30/2019 3:53 PM EDT Oates, Registered Nurse * Are you blind or do you have serious difficulty seeing, even when wearing glasses? Answer Date of Assessment Author No 11/30/2019 3:53 PM EDT Oates, Registered Nurse * Do you have serious difficulty walking or climbing stairs? (5 years old or older) Answer Date of Assessment Author No 11/30/2019 3:53 PM EDT Oates, Registered Nurse * Do you have difficulty dressing or bathing? (5 years old or older) Answer Date of Assessment Author No 11/30/2019 3:53 PM EDT Oates, Registered Nurse * Because of a physical, mental, or emotional condition, do you have difficulty doing errands alone such as visiting a doctor???s office or shopping? (15 years old or older) Answer Date of Assessment Author No 11/30/2019 3:53 PM EDT Oates, Registered Nurse documented as of this encounter Mental Status * Because of a physical, mental, or emotional condition, do you have serious difficulty concentrating, remembering, or making decisions? (5 years old or older) Answer Entry Date Author No 11/30/2019 3:53 PM EDT Oates, Registered Nurse documented in this encounter Plan of Treatment Not on file documented as of this encounter Visit Diagnoses Not on filedocumented in this encounter Additional Health Concerns Infection Onset Date Last Indicated Resolved Time COVID-19 Suspect 09/17/2023 09/17/2023 09/17/2023 2:29 AM EDT documented as of this encounter Care Teams Supervisor Ski Production Relationship Specialty Start Date End Date Barbara Zelaya MD PCP - General Internal Medicine 05/26/13 04/02/20 George Chua Jr., MD [facility] [address] [facility], [address] [address] PCP - General Internal Medicine 04/03/20 11/10/20 Barbara Zelaya MD PCP - General Internal Medicine 11/11/20 06/29/22 Jace Jacome MD [facility] [address] [facility], [address] [address] PCP - General Internal Medicine 06/30/22 12/03/22 Barbara Zelaya MD PCP - General Internal Medicine 12/04/22 04/18/23 Jace Jacome MD [facility] [address] [place] [address], [address] [address] PCP - General Internal Medicine 04/19/23 05/02/24 Jace Jacome MD [facility] [address] [place] [address], [address] [address] PCP - General Internal Medicine 05/03/24 Ry Messina MD [facility] [address] [place] [address], [address] [address] Neurosurgery 06/30/20 documented as of this encounter
--- OUTSIDE RECORDS SUMMARY | 2024-10-12 22:24 | XMS_ITS | Encounter Summary ---
Author Organization [facility] Address [address], [address] [place] [address] Care Team Providers Care Rn Admissions Name Role Phone Unavailable Primary Care Provider Unavailabl e Encounter Details Date Type Department Care Team (Latest Contact Info) Description 01/25/2021 Transcribe Orders [facility] Pre Access [address] [place] [address] Nina Garg, QUARTZ ORIENTATOR - DATA SUPPORT ANALYST Breast mass in male (Primary Dx) Social History Tobacco Use Types Packs/Day Years Used Date Smoking Tobacco: Every Day Cigarettes Smokeless Tobacco: Current Alcohol Use Standard Drinks/Week Comments Not Currently 0 (1 standard drink = 0.6 oz pur e alcohol) Sex and Gender Information Value Date Recorded Sex Assigned at Male 01/27/2023 12:52 AM EST Legal Sex Male 11:56 AM EST Gender Identity Male 01/27/2023 12:52 AM EST Sexual Orientation Don't know 01/27/2023 12 :52 AM EST documented as of this encounter Plan of Treatment Not on file documented as of this encounter Visit Diagnoses Diagnosis Breast mass in male- Primary Lump or mass in breast documented in this encounter Additional Health Concerns Infection Onset Date Last Indicated Resolved Time C-diff Rule Out 08/27/2022 08/27/2022 08/27/2022 2 :36 PM EDT COVID-19 (Rule Out) 12/03/2022 12/03/2022 12/04/19 23 8:26 PM EDT C-diff Rule Out Comment: Order 12/06/2022 12/06/2022 12/08/2022 8:37 AM EDT COVID-19 (Rule Out) 03/29/2023 03/29/2023 03/30/19 24 1:02 AM EST COVID-19 (Rule Out) 04/01/2023 04/01/2023 04/01/19 24 10:05 PM EST COVID-19 (Rule Out) 04/10/2023 04/10/2023 04/10/19 24 11:10 PM EST COVID-19 (Rule Out) 05/15/2024 05/15/2024 05/16/19 25 9:03 AM EDT documented as of this encounter
--- OUTSIDE RECORDS SUMMARY | 2024-10-12 22:24 | XMS_ITS | Clinical Summary ---
Author Organization [facility] [place] [address] Care Team Providers Care Cash Van Salesperson Name Role Phone Jace Jacome MD Primary Care Provider [phone] Allergies Active Allergy Reactions Criticality Noted Date Comments Propoxyphene Anaphylaxis,Hives,Na usea and Vomiting,Rash High 12/10/2017 Darvocet (propoxyphene-acetamin ophen) Darvocet (propoxyphene-acetamin ophen) Darvocet (propoxyphene-acetamin ophen) Hydroxyzine Hcl Nausea and Vomiting 12/29/2023 Medications pantoprazole (PROTONIX) 40 mg enteric-coated tablet Take 1 Tab by mouth 3 Active buprenorphine extended-relea se (SUBLOCADE) 100 mg/0.5 mL slsy injection Inject subcutaneously every 4 weeks Active Active Problems Problem Noted Date Diagnosed Date Hallucination 04/04/2015 Benzodiazepine withdrawal 04/04/2015 Opiate withdrawal 04/04/2015 Ventral hernia without obstruction or gangrene 0 11/18/2014 Mental health problem 11/18/2014 Family History Relation Status Comments Father Prostate cancer Mother Alive Social History Tobacco Use Types Packs/Day Years Used Date Smoking Tobacco: Every Day Cigarettes Smokeless Tobacco: Never Tobacco Cessation:Ready to Q uit: Not Asked; Counseling Given: Not Answered Alcohol Use Standard Drinks/Week Comments No 0 (1 standard drink = 0.6 oz pur e alcohol) Sex and Gender Information Value Date Recorded Sex Assigned at Not on file Legal Sex Male 9:04 AM EDT Gender Identity Not on file Sexual Orientation Not on file Last Filed Vital Signs Vital Sign Reading Time Taken Comments Blood Pressure 156/100 05/29/2024 2:15 AM EDT Pulse 87 05/29/2024 2:15 AM EDT Temperature 36.6 C (97.8 F) 05/29/2024 2:15 AM EDT Respiratory Rate 16 05/29/2024 2:15 AM EDT Oxygen Saturation 98% 05/29/2024 2:15 AM EDT Inhaled Oxygen Concentration - - Weight 120.2 kg (265 lb) 05/28/2024 10:06 AM EDT Height 177.8 cm (5' 10 ) 05/28/2024 10:06 AM EDT Body Mass Index 38.02 05/28/2024 10:06 AM EDT Plan of Treatment Health Maintenance Due Date Last Done Comments HIV Screening 1996 HPV Vaccines (1 - Male 3-dos e series) 1996 DTaP/Tdap/Td Vaccines (1 - Tdap) 2000 Hepatitis B Vaccines (1 of 3 - 19+ 3-dose series) 2000 Pneumococcal Vaccines: Pediatrics (0 to 5 Years) and At-Risk Patients (6 to 49 Years) (1 of 2 - PCV) 2000 COVID-19 Vaccines (3 - season) 2023 04/02/2020, 03/12/2020 Influenza Vaccines 09/21/2024 Hepatitis C Screening Completed 12/19/2014 HIB Vaccines Aged Out No longer eligi ble based on patient's age to complete this topic HISTORICAL VIEW: MMR Vaccines Discontinued HISTORICAL VIEW: Varicella Vaccines Discontinued Hepatitis A Vaccines Aged Out No long er eligible based on patient's age to complete this topic IPV Vaccines Aged Out No longer eligi ble based on patient's age to complete this topic Meningococcal Vaccines Aged Out No lo nger eligible based on patient's age to complete this topic Rotavirus Vaccines Aged Out No longer eligible based on patient's age to complete this topic Procedures Procedure Name Priority Date/Time Associated Diagnosis Comments HEPATITIS C RNA QUANTITATIVE BY PCR Routine 12/19/2014 9:43 AM EDT from Last 3 Months or Most Recently Relevant to Health Maintenance Results * (ABNORMAL) HEPATITIS C RNA QUANTITATIVE BY PCR (12/19/2014 9:43 AM EDT) HEPATITIS C RNA BY PCR, QUANTITATIVE [id number] Reference range: NOT DETECTED Unit: IU/ML (H) SALES DEVELOPMENT MANAGER RESULT, HCV 7.43 Unit: Log IU/ml THIS SPECIMEN WAS TESTED BY THE [facility] HCV REAL-TIME PCR ASSAY. THE RESULT GIVEN ABOVE IS THE NUMBER OF INTERNATIONAL UNITS (IU) OF HCV RNA PER 1 ML OF PLASMA (VIRAL LOAD). CHANGES OF THREE FOLD (0.5 LOG) OR MORE FROM THE BASELINE LEVEL ESTABLISHED FOR A PATIENT ARE SIGNIFICANT WITH REGARD TO PREDICTING DISEASE PROGRESSION AND MONITORING EFFICACY OF ANTI-VIRAL THERAPY. THIS ASSAY IS NOT INTENDED FOR DIAGNOSTIC USE. RESULTS FROM THIS ASSAY SHOULD ONLY BE USED IN CONJUNCTION WITH THE PATIENT'S CLINICAL PRESENTATION AND OTHER ESTABLISHED LABORATORY TEST. REPORTABLE RANGE: 15-100,000,000 IU/ML 1.18-8.00 LOG10 IU/ML PERFORMED AT [facility]; MED.DIRECTOR MARLENE HENSLEY MD. SALES DEVELOPMENT MANAGER 12/19/2014 9:43 AM EDT 12/19/2014 10:30 AM EDT Isabela Humphreys MD LAB - BLOOD ORDERS Final Resul t [facility] SALES DEVELOPMENT MANAGER from Last 3 Months or Most Recently Relevant to Health Maintenance Insurance [facility] Address: [address] [place] [address] MEDICAID [employer] Advance Directives For more information, please contact: [phone] * Total Support (Latest Code Status on File) Date Activated Date Inactivated Comments 04/04/2015 11:50 AM 04/05/2015 2:59 PM Care Teams Cash Van Salesperson Relationship Specialty Start Date End Date Jace Jacome MD [address] [place] [address] PCP - General Internal Medicine 12/29/23
--- OUTSIDE RECORDS SUMMARY | 2024-10-12 22:24 | XMS_ITS | Encounter Summary ---
Author Organization [facility] Address [address], [address] [place] [address] Care Team Providers Care Kraft Mill Operator Name Role Phone Unavailable Primary Care Provider Unavailabl e Reason for Referral * Specialty Diagnoses / Procedures Referred By Irais jordan Referred To Contact [facility] [address] [place] [address] Phone: tel: Referral ID Status Reason Start Date Expiration Date Visits Re quested Visits Authorized Comments This order was created through External Result Entry Encounter Details Date Type Department Care Team (Late st Contact Info) Description 03/21/2024 Orders Only [facility] [address] [facility] [address] [place] [address] Vikas Dawn MD Social History Tobacco Use Types Packs/Day Years Used Date Smoking Tobacco: Every Day Cigarettes Smokeless Tobacco: Current Alcohol Use Standard Drinks/Week Comments Yes 0 (1 standard drink = 0.6 oz pur e alcohol) AUDIT-C Answer Date Recorded Q1: How often do you have a drink containing alcohol? Never 02/04/2024 Q2: How many drinks containi ng alcohol do you have on a typical day when you are drinking? Patient does not drink Q3: How often do you have si x or more drinks on one occasion? Never 02/04/2024 Overall Financial Resource Strain (CARDIA) Answe r Date Recorded How hard is it for you to pa y for the very basics like food, housing, medical care, and heating? Hard 03/04/2023 PHQ-2 Answer Date Recorded PHQ-9 Total Score 0 12/06/2022 Hunger Vital Sign Answer Date Recorded Within the past 12 months, y ou worried that your food would run out before you got the money to buy more. Never true 03/04/19 24 Within the past 12 months, t he food you bought just didn't last and you didn't have money to get more. Never true 03/04/2023 PRAPARE - Transportation Answer Date Re corded In the past 12 months, has l ack of transportation kept you from medical appointments or from getting medications? No 02/21 In the past 12 months, has l ack of transportation kept you from meetings, work, or from getting things needed for daily living? No 03/04/2023 Housing Stability Vital Sign Answer Willis e Recorded In the last 12 months, was t here a time when you were not able to pay the mortgage or rent on time? Yes 03/04/2023 In the last 12 months, how many places have you lived? 1 03/04/2023 In the last 12 months, was t here a time when you did not have a steady place to sleep or slept in a skilled nursing (including now)? Yes 03/04/2023 Food Insecurity Answer Date Recorded Within the past 12 months, y ou worried that your food would run out before you got the money to buy more. 1 03/04/2023 Within the past 12 months, t he food you bought just didn't last and you didn't have money to get more. 1 03/04/2023 Interpersonal Safety Domain Source: IP Abuse Scr eening Answer Date Recorded Physical abuse Denies 03/12/2024 Verbal abuse Denies 03/12/2024 Emotional abuse Denies 03/12/2024 Financial abuse Denies 03/12/2024 Sexual abuse Denies 03/12/2024 Sex and Gender Information Value Date Recorded Sex Assigned at Male 01/27/2023 12:52 AM EST Legal Sex Male 11:56 AM EST Gender Identity Male 01/27/2023 12:52 AM EST Sexual Orientation Don't know 01/27/2023 12 :52 AM EST documented as of this encounter Plan of Treatment Not on file documented as of this encounter Procedures Procedure Name Priority Date/Time Associated Diagnosis Comments AMB EXTERNAL REFERRAL TO ORTHOPEDIC SURGERY Routine 03/21/2024 10:26 AM EST documented in this encounter Results * Amb External Referral To Orthopedic Surgery (03/21/2024 10:26 AM EST) us Historical Provider MD MANUEL AMB EXT REFERRALS Fin al Result documented in this encounter Visit Diagnoses Not on filedocumented in this encounter Additional Health Concerns Infection Onset Date Last Indicated Resolved Time COVID-19 (Rule Out) 05/15/2024 05/15/2024 05/16/19 9:03 AM EDT documented as of this encounter
--- OUTSIDE RECORDS SUMMARY | 2024-10-12 22:24 | XMS_ITS | Referral Summary ---
Author Organization [facility] Address [address] [place] [address] Care Team Providers Care Green Building Engineer Name Role Phone Ry Messina MD Unavailable [phone] Jace Jacome MD Primary Care Provider [phone] Encounters Date Type Department Care Team Description 08/25/2024 9:59 PM EDT - 08/25/2024 11:33 PM EDT Emergency [facility] Emergency Department [address] [place] [phone] Stas Davis MD Procedure and treatment not carried out due to patient leaving prior to being seen by health care provider [Z53.21] Discharge Disposition: Left Against Medical Advice 08/22/2024 7:52 PM EDT - 08/22/2024 9:08 PM EDT Emergency [facility] Emergency Department [address] [place] [phone] Royce Crenshaw MD Discharge Disposition: Left Against Medical Advice 08/01/2024 3:19 PM EDT - 08/01/2024 6:33 PM EDT Emergency [facility] Emergency Department [address] [place] [phone] Kaycee Jo MD Chest pain, unspecified [R07.9] Discharge Disposition: Home or Self Care from Last 3 Months Allergies Active Allergy Reactions Criticality Noted Date Comments Propoxyphene Hives,Rash High 06/16/2018 Darvocet (propoxyphene-acetaminophe n) Hydroxyzine Hcl Nausea And Vomiting 12/29/2023 Morphine Rash Low 09/14/2022 Ondansetron Hcl Nausea And Vomiting 06/25/2021 Medications * This document contains information received from the source organization and may not represent a complete record from that organization. methadone (DOLOPHINE) 10 MG TABS Take 130 mg by mouth daily. Active QUEtiapine (SEROQUEL XR) 200 mg extended-relea se tablet Take 200 mg by mouth nightly. Active ALPRAZolam (XANAX) 1 MG TABS Take 1 mg by mouth 4 (four) times daily. Active dicyclomine (BENTYL) 20 MG TABS Take 1 tablet by mouth 3 (three) times daily as needed. 30 tablet 4 Active promethazine (PHENERGAN) 12.5 MG TABS Take 1 tablet by mouth every 8 (eight) hours as needed. 15 tablet 4 Active promethazine (PHENERGAN) 25 MG SUPP 1 suppository by Rectal route every 8 (eight) hours as needed. 30 suppository 4 Active cloNIDine (CATAPRES) 0.1 MG TABS Take 1 tablet by mouth 3 (three) times daily for 3 days. 9 tablet 4 Active buprenorphine- naloxone (SUBOXONE FILM) 8-[address] 8 mg under the tongue 2 (two) times daily. Filled 12/19/23 [facility] ([facility] [address]) Active buprenorphine- naloxone (SUBOXONE) 2-0.[address] 2 Film under the tongue. Filled 12/20/23 [facility] ([place] [address]) 4 Active polyethylene glycol (GLYCOLAX,MARTELL LAX) 17 GM/SCOOP POWD Take 17 g by mouth daily. 527 g 4 Active Active Problems Problem Noted Date Diagnosed Date Chest pain, unspecified type 12/04/2022 Cocaine abuse 12/04/2022 IVDU (intravenous drug user) 12/04/2022 Hypokalemia 12/04/2022 Cellulitis of right hand 12/04/2022 Acute urinary retention 08/11/2020 Esophageal dysphagia 06/30/2020 Dysuria 06/30/2020 Chronic hepatitis C without hepatic coma 021 Elbow laceration, left, subsequent encounter 12/2019 Tibia and fibula open fracture, right, sequela 1 Lumbar transverse process fracture 11/30/2019 Polysubstance abuse 11/30/2019 Methamphetamine use 11/30/2019 Status post laparoscopic hernia repair 9 Methamphetamine abuse 06/03/2018 Dehydration 06/03/2018 Depression with suicidal ideation 04/30/2015 Opiate abuse, continuous 04/30/2015 Hep C w/o coma, chronic 05/28/2013 Suicidal ideation 05/27/2013 GERD (gastroesophageal reflux disease) 4 Tobacco abuse 05/27/2013 Elevated liver enzymes 05/27/2013 Substance induced mood disorder Resolved Problems Problem Noted Date Diagnosed Date Resolved Date Polysubstance (including opi oids) dependence, daily use 04/30/2015 06/03/2018 Overview (06/03/2018): IV heroin, meth, marijuana and oxycodone. Incisional hernia, without o bstruction or gangrene 05/27/2013 09/21/2018 Immunizations Immunization Administration Dates Next Due COVID-19 mRNA Vaccine (Pfizer EUA 12+) Purple Ca p 04/02/2020,03/12/2020 Social History Tobacco Use Types Packs/Day Years Used Date Smoking Tobacco: Every Day Cigarettes Smokeless Tobacco: Current Snuff Tobacco Cessation:Ready to Q uit: Not Asked; Counseling Given: Not Answered Alcohol Use Standard Drinks/Week Comments Not Currently 0 (1 standard drink = 0.6 oz pur e alcohol) sober since 2006 Food Insecurities Answer Date Recorded Within the past 12 months, d id you worry that your food would run out before you got money to buy more? No 04/19/2023 Within the past 12 months, d id the food you bought just not last and you didn't have money to get more? No 04/19/2023 Housing/Utilities Answer Date Recorded Are you worried about losing your housing? No 04/19/2023 Within the past 12 months, h ave you ever stayed: outside, in a car, in a tent, in an overnight fdc, or temporarily in someone else's home (i.e. couch-surfing)? No 04/19/2023 Within the past 12 months, h ave you been unable to get utilities (heat, electricity) when it was really needed? No 024 Interpersonal Safety Answer Date Record ed Do you feel physically or em otionally unsafe where you currently live? No 04/19/2023 Within the past 12 months, h ave you been hit, slapped, kicked or otherwise physically hurt by anyone? No 04/19/2023 Within the past 12 months, h ave you been hit, slapped, kicked or otherwise physically hurt by anyone? No 04/19/2023 Transportation Answer Date Recorded Within the past 12 months, h as a lack of transportation kept you from medical appointments or from doing things needed for daily living? No 04/19/2023 Utilities Answer Date Recorded Are you worried about losing your housing? No 04/19/2023 Within the past 12 months, h ave you ever stayed: outside, in a car, in a tent, in an overnight fdc, or temporarily in someone else's home (i.e. couch-surfing)? No 04/19/2023 Within the past 12 months, h ave you been unable to get utilities (heat, electricity) when it was really needed? No 024 Sex and Gender Information Value Date Recorded Sex Assigned at Not on file Legal Sex Male 7:10 PM EDT Gender Identity Male 06/02/2018 10:31 PM EDT Sexual Orientation Not on file Last Filed Vital Signs Vital Sign Reading Time Taken Comments Blood Pressure 174/93 08/25/2024 10:17 PM EDT Pulse 120 08/25/2024 10:17 PM EDT Temperature 37.2 C (98.9 F) 08/25/2024 10:17 PM EDT Respiratory Rate 20 08/25/2024 10:17 PM EDT Oxygen Saturation 97% 08/25/2024 10:17 PM EDT Inhaled Oxygen Concentration - - Weight 117.9 kg (260 lb) 05/03/2024 6:26 PM EDT Height 180.3 cm (5' 11 ) 05/03/2024 6:26 PM EDT Body Mass Index 36.26 05/03/2024 6:26 PM EDT Functional Status * Are you deaf or [...] of Assessment Author No 12/04/2022 6:03 AM ADONIST Peyton Brunson Registered Nurse Mental Status * Because of a physical, mental, or emotional condition, do you have serious difficulty concentrating, remembering, or making decisions? (5 years old or older) Answer Entry Date Author No 12/04/2022 6:03 AM Peyton Hamm Registered Nurse Plan of Treatment Not on file Medical Devices Implanted Type Area Synchronous Motor Assembler Device Identifier Shelf Expiration Date Model / Serial / Lot Mesh Ventralight Ellipse 8x10 - [id number] Implanted:Qty: 1 on 09/14/2018 by Solomon Prince MD at [facility] N/A: Abdomen BARD DAVOL 03/20/2020 [id number] / / [id number] Procedures Procedure Name Priority Date/Time Associated Diagnosis Comments ECG 12-LEAD STAT 08/25/2024 10:02 PM EDT BAMP (NA,K,CL,CO2,GLU,BUN, CREAT,CA) Routine 08/01/2024 5:19 PM EDT HS TROPONIN I Timed 08/01/2024 5:19 PM EDT HS TROPONIN I STAT 08/01/2024 3:59 PM EDT XR CHEST AP PORTABLE STAT 08/01/2024 3:58 PM EDT B NATRIURETIC PEPTIDE Add-On 08/01/2024 3:58 PM EDT D DIMER QUANTITATIVE STAT 08/01/2024 3:58 PM EDT CBC WITH DIFFERENTIAL STAT 08/01/2024 3:58 PM EDT ECG 12-LEAD STAT 08/01/2024 2:43 PM EDT from Last 3 Months Results * (ABNORMAL) BAMP (Na,K,Cl,CO2,Glu,BUN,Creat,Ca) (08/01/2024 5:19 PM EDT) BLD UREA NITROGEN 13 8 - 26 mg/dL CHEMISTRY HEMATOLOGY SODIUM 142 135 - 145 mmol/L CHEMISTRY HEMATOLOGY POTASSIUM 3.4(L) 3.6 - 5.1 mmol/L CHEMISTRY HEMATOLOGY CHLORIDE 106 98 - 111 mmol/L CHEMISTRY HEMATOLOGY CO2 26 21 - 31 mmol/L CHEMISTRY HEMATOLOGY GLUCOSE, RANDOM 91 70 - 99 mg/dL CHEMISTRY HEMATOLOGY CREATININE 0.88 0.70 - 1.30 mg/dL CHEMISTRY HEMATOLOGY ANION GAP 10 4 - 16 mmol/L CHEMISTRY HEMATOLOGY CALCIUM 9.7 8.5 - 10.4 mg/dL CHEMISTRY HEMATOLOGY ESTIMATED GFR 110 >59 mL/min/1.7 3 m2 CHEMISTRY HEMATOLOGY Comment: Estimated GFR was calculated using the CKD-EPI cr (2020) equation refit without race. The equation is recommended by the National Kid[employer] - [place] [employer] of Nephrology Task Force. Tested at [facility] [address] [address] Whole Blood 08/01/2024 5:19 PM EDT 08/01/2024 5:32 PM EDT us Kaycee Jo MD LAB BLOOD ORDERABLES Final Result Performing Organization Address [facility] Co de Phone Number [facility] [id number] [place] [id number] CHEMISTRY HEMATOLOGY [address] [place], [place] [address] * HS Troponin I (08/01/2024 5:19 PM EDT) Only the most recent of2 resultswithin the time period is included. HS TROPONIN I <3 <20 ng/L [facility]PART[facility] Comment: Interpretive Guidelines: LOW RISK: <3 ng/L or Delta <4 and below 20 ng/L LOW INTERMEDIATE RISK: <20 ng/L HIGH INTERMEDIATE RISK: >/= 20 ng/L HIGH RISK: >/=88 ng/L or Delta >/=22 Tested at [place] [address] Whole Blood 08/01/2024 5:19 PM EDT 08/01/2024 5:24 PM EDT Kaycee Jo MD LAB BLOOD ORDERABLES Final Result Performing Organization Address [facility] Co de Phone Number [facility] [id number] [place] [id number] [place] [address] * XR CHEST AP PORTABLE (08/01/2024 3:58 PM EDT) Anatomical Region Laterality Modality Chest Digital Radiogra phy 08/01/2024 3:59 PM EDT Impressions 08/01/2024 3:59 PM EDT No significant abnormality Narrative 08/01/2024 3:59 PM EDT HISTORY: Chest pain COMPARISON: 05/25/2024 NOTE: If there are questions about the content of this report, please contact [facility] radiology by calling [phone] FINDINGS: LINES/DEVICES: None LUNGS/PLEURA: Unremarkable HEART: Unremarkable MEDIASTINUM/JERRY: Unremarkable BONES: Unremarkable OTHER: None Procedure Note Syed June MD - 08/01/2024 HISTORY: Chest pain COMPARISON: 05/25/2024 NOTE: If there are questions about the content of this report, pleasecontact [facility] radiology by calling [phone] FINDINGS: LINES/DEVICES: None LUNGS/PLEURA: Unremarkable HEART: Unremarkable MEDIASTINUM/JERRY: Unremarkable BONES: Unremarkable OTHER: None IMPRESSION No significant abnormality Kaycee Jo MD RAD Final Resul t * B Natriuretic Peptide (08/01/2024 3:58 PM EDT) [facility] B NATRIURETIC PEP 17 0 - 23 pg/mL CHEMISTRY HEMATOLOGY Comment: BNP levels less than or equal to 100 are agency service representative of normal values in patients without CHF. While a negative BNP value makes the diagnosis of CHF unlikely, it does not exclude other potentially serious conditions such as acute coronary syndrome, asthma, COPD, or pulmonary embolism. BNP was measured by the Folk[employer] Access BNP method. Natriuretic peptide assays are not currently standardized and results from one assay method cannot be reliably converted or compared to those obtained by another method. Tested at [place] [address] 08/01/2024 3:58 PM EDT 08/01/2024 4:07 PM EDT Kaycee Jo MD LAB BLOOD ORDERABLES Final Result [facility] [address] [place], [place] [phone] CHEMISTRY HEMATOLOGY [address] [place] [address] * D Dimer Quantitative (08/01/2024 3:58 PM EDT) [facility] D DIMER QUANTITATIVE 0.37 <0.5 mcg/mL FEU CHEMISTRY HEMATOLOGY Comment: A cut-off of 0.5 mcg/ml FEU can be used, in conjunction with a clinical pretest probability (PTP) assessment model, to exclude pulmonary embolism (PE) and aid in the diagnosis of deep venous thrombosis (DVT) for patients with low to moderate risk. Increased levels of D-Dimer are associated with PE, DVT, DIC, malignancies, inflammation, sepsis, surgery, trauma, , and advancing patient age. Tested at [address] [address] Whole Blood 08/01/2024 3:58 PM EDT 08/01/2024 4:14 PM EDT Kaycee Jo MD LAB BLOOD ORDERABLES Final Result [facility] [address] [place] [address] CHEMISTRY HEMATOLOGY [address] [place] [address] * (ABNORMAL) CBC w/ Diff (08/01/2024 3:58 PM EDT) WBC 5.9 3.6 - 10.5 THOU/mcL CHEMISTRY HEMATOLOGY RBC 4.55 4.40 - 5.80 MIL/mcL CHEMISTRY HEMATOLOGY HEMOGLOBIN 13.6 13.5 - 16.5 g/dL CHEMISTRY HEMATOLOGY HEMATOCRIT 39.3(L) 40 - 50 % CHEMISTRY HEMATOLOGY MCV 86.4 82 - 97 fL CHEMISTRY HEMATOLOGY MCH 30.0 27 - 33 pg CHEMISTRY HEMATOLOGY MCHC 34.7 32 - 36 g/dL CHEMISTRY HEMATOLOGY RDW 13.7 12.3 - 17.0 % CHEMISTRY HEMATOLOGY PLATELET 182 140 - 375 THOU/mcL CHEMISTRY HEMATOLOGY MPV 9.0 7.4 - 11.5 fL CHEMISTRY HEMATOLOGY ABS. NEUTROPHIL 3.60 1.80 - 7.70 THOU/mcL CHEMISTRY HEMATOLOGY ABS LYMPHS 1.70 1.00 - 4.00 THOU/mcL CHEMISTRY HEMATOLOGY ABS MONOS 0.40 0.20 - 0.90 THOU/mcL CHEMISTRY HEMATOLOGY ABS EOS 0.00(L) 0.03 - 0.45 THOU/mcL CHEMISTRY HEMATOLOGY ABS BASOS 0.10 0.00 - 0.20 THOU/mcL CHEMISTRY HEMATOLOGY SEGS 60 % CHEMISTRY HEMATOLOGY LYMPHOCYTES 30 % CHEMISTR Y HEMATOLOGY MONOCYTES 8 % CHEMISTRY HEMATOLOGY EOSINOPHIL 1 % CHEMISTRY HEMATOLOGY BASOPHILS 1 % CHEMISTRY HEMATOLOGY Comment:Tested at [facility] [address] [place] [address] Whole Blood 08/01/2024 3:58 PM EDT 08/01/2024 4:07 PM EDT Kaycee Jo MD LAB BLOOD ORDERABLES Final Result [facility] [address] [place], [place] [id number] CHEMISTRY HEMATOLOGY [address] [place] [address] * ECG 12 lead (08/01/2024 2:43 PM EDT) HEART RATE 102 bpm TH TRACEMASTER RR INTERVAL 588 ms TH TRACEMASTER ATRIAL RATE 102 ms TH TRACEMASTER P-R Interval 138 ms TH TRACEMASTER P Duration 112 ms TH TRACEMASTER P HORIZONTAL 14 deg TH TRACEMASTER P FRONT AXIS 49 deg TH TRACEMASTER Q Onset 505 ms TH TRACEMASTER QRSD Interval 102 ms TH TRACEMASTER QT INTERVAL 362 ms TH TRACEMASTER QTCB 472 ms TH TRACEMASTER QTcF 432 ms TH TRACEMASTER QRS Horizontal [place] 6 deg TH TRACEMASTER QRS AXIS 33 deg TH TRACEMASTER I-40 Horizontal [place] 56 deg TH TRACEMASTER I-40 FRONT AXIS 92 deg TH TRACEMASTER T-40 Horizontal [place] -22 deg TH TRACEMASTER T-40 Front [place] 13 deg TH TRACEMASTER T Horizontal [place] 24 deg TH TRACEMASTER T WAVE AXIS 55 deg TH TRACEMASTER S-T Horizontal [place] 54 deg TH TRACEMASTER S-T Front [place] 104 deg TH TRACEMASTER ECG IMPRESSION - OTHERWISE NORMAL ECG - TH TRACEMASTER ECG IMPRESSION ST-Sinus tachycardia-r ate>99 TH TRACEMASTER ECGGUID [id number] TH TRACEMASTER 08/01/2024 2:43 PM EDT us Kaycee Jo MD ECG ORDERABLES Final Resul t TH TRACEMASTER from Last 3 Months Insurance [facility] MEDICAID on file Care Teams Green Building Engineer Relationship Specialty Start Date End Date Jace Jacome MD PCP - General Internal Medicine 05/03/24 Ry Messina MD Neurosurgery 06/30/20
--- OUTSIDE RECORDS SUMMARY | 2024-10-12 22:24 | XMS_ITS | Clinical Summary ---
Author Organization [facility] Address [address], [address] [place] [address] Care Team Providers Care Family Assistant Name Role Phone Unavailable Primary Care Provider Unavailabl e Allergies Active Allergy Reactions Criticality Noted Date Comments Morphine Rash Low 09/14/2022 Ondansetron Nausea And Vomiting Low 06/25/2021 Rash Other Hives 04/06/2022 05/02/23 doesn't know any other med allergies Propoxyphene Anaphylaxis High 12/10/2017 Medications pantoprazole (PROTONIX) 40 MG tabletIndication s:Nausea and vomiting, unspecified vomiting type Take 1 tablet by mouth 2 times daily 30 tablet 4 Active Buprenorphine (BRIXADI, WEEKLY, SC) Inject into the skin every 30 days Active cloNIDine (CATAPRES) 0.2 MG tablet Take 1 tablet by mouth 2 times daily 4 Active permethrin (ELIMITE) 5 % creamIndications :Scabies Apply topically as directed 60 g 5 Active Additional Information Patient not taking.Reported on 06/26/2024 gabapentin (NEURONTIN) 800 MG tablet Take 1 tablet by mouth 4 times daily. Active Active Problems Problem Noted Date Diagnosed Date Urinary frequency 06/26/2024 Rupture of anterior cruciate ligament of right k nee 03/09/2024 Chest pain 05/17/2023 Anxiety 05/17/2023 PTSD (post-traumatic stress disorder) 05/17/2023 NSTEMI (non-ST elevated myocardial infarction) 0 04/20/2023 Cocaine abuse 04/15/2023 Benzodiazepine dependence 04/15/2023 Opiate dependence, continuous 12/08/2022 BMI 31.0-31.9,adult 12/08/2022 Polysubstance abuse 12/08/2022 Intravenous drug abuse 12/08/2022 Cellulitis 12/06/2022 Opiate withdrawal 09/14/2022 Opioid withdrawal 08/26/2022 Drug overdose, accidental or unintentional, initial encounter 08/19/2022 Infected hardware in right leg, initial encounte r 12/05/2019 Infection of superficial inc isional surgical site after procedure Right leg pain Tibia/fibula fracture, shaft, right, sequela Low grade fever IVDU (intravenous drug user) Elevated sed rate Elevated C-reactive protein Chronic hepatitis C without hepatic coma Hyponatremia Overweight (BMI 25.0-29.9) Encounter for medication counseling Drug or alcohol risk assessment or counseling Tobacco abuse counseling Weight loss counseling, encounter for Resolved Problems Problem Noted Date Diagnosed Date Resolved Date Screening for HIV (human imm unodeficiency virus) 01/05/2020 Encounters Date Type Department Care Team Description 08/26/2024 6:51 PM EDT - 08/26/2024 6:53 PM EDT Emergency [facility] Emergency Department [address] [place] [address] Discharge Disposition: LWBS before subpoena server from Last 3 Months Immunizations Immunization Administration Dates Next Due TDaP, ADACEL (age 10y-64y), BOOSTRIX (age 10y+), IM, 0.5mL 12/06/2019 Social History Tobacco Use Types Packs/Day Years Used Date Smoking Tobacco: Every Day Cigarettes Smokeless Tobacco: Current Tobacco Cessation:Ready to Q uit: Not Asked; Counseling Given: Yes Alcohol Use Standard Drinks/Week Comments Not Currently 0 (1 standard drink = 0.6 oz pur e alcohol) AUDIT-C Answer Date Recorded Q1: How often do you have a drink containing alcohol? Never 06/12/2024 Q2: How many drinks containi ng alcohol do you have on a typical day when you are drinking? Patient does not drink Q3: How often do you have si x or more drinks on one occasion? Never 06/12/2024 Overall Financial Resource Strain (CARDIA) Answe r [...] place to sleep or slept in a fci (including now)? Yes 03/04/2023 Food Insecurity Answer [...] eening Answer Date Recorded Physical abuse Denies 06/12/2024 Verbal abuse Denies 06/12/2024 Emotional abuse Denies 06/12/2024 Financial abuse Denies 06/12/2024 Sexual abuse Denies 06/12/2024 Sex and Gender Information Value Date Recorded Sex Assigned at Male 01/27/2023 12:52 AM EST Legal Sex Male 11:56 AM EST Gender Identity Male 01/27/2023 12:52 AM EST Sexual Orientation Don't know 01/27/2023 12 :52 AM EST Last Filed Vital Signs Vital Sign Reading Time Taken Comments Blood Pressure 136/85 06/26/2024 2:05 PM EDT Pulse 99 06/26/2024 2:05 PM EDT Temperature 36.4 C (97.5 F) 06/26/2024 2:05 PM EDT Respiratory Rate 18 06/12/2024 6:26 AM EDT Oxygen Saturation 94% 06/26/2024 2:05 PM EDT Inhaled Oxygen Concentration - - Weight 126.6 kg (279 lb) 06/26/2024 2:05 PM EDT Height 180.3 cm (5' 11 ) 06/26/2024 2:05 PM EDT Body Mass Index 38.91 06/26/2024 2:05 PM EDT Plan of Treatment Health Maintenance Due Date Last Done Comments Polio vaccine (4 of 4 - 4-dose series) 1985 07/22/1983, 10/21/1982, 08/20/1982 Varicella vaccine (1 of 2 - 13+ 2-dose series) 1994 Hepatitis A vaccine (1 of 2 - Risk 2-dose series) 2000 Hepatitis B vaccine (1 of 3 - 19+ 3-dose series) 2000 Pneumococcal 0-49 years Vaccine (1 of 2 - PCV) 2000 COVID-19 Vaccine (3 - 2023- season) 2023 04/02/2020, 03/12/2020 Depression Screen 12/07/2023 12/06/2022 Flu vaccine (#1) 09/21/2024 Diabetes screen 12/08/2025 12/08/2022 Lipids 05/16/2028 05/17/2023 DTaP/Tdap/Td vaccine (5 - Td or Tdap) 12/05/2029 12/06/2019, 07/22/1983, 10/21/1982, Additional history exists HIV screen Completed 12/06/2019 HPV vaccine (No Doses Required) Completed Hib vaccine Aged Out No longer eligi ble based on patient's age to complete this topic Meningococcal (ACWY) vaccine Aged Out No longer eligible based on patient's age to complete this topic Meningococcal B vaccine Aged Out No l onger eligible based on patient's age to complete this topic Procedures Procedure Name Priority Date/Time Associated Diagnosis Comments LIPID PANEL Routine 05/17/2023 11:24 AM EDT HEMOGLOBIN A1C Routine 12/08/2022 8:56 AM EDT HIV SCREEN Add-On 12/06/2019 3:40 PM EDT from Last 3 Months or Most Recently Relevant to Health Maintenance Results * Lipid Panel (05/17/2023 11:24 AM EDT) Cholesterol, Total 156 0 - 199 mg/dL 05/17/2023 5:45 PM EDT [facility] Triglycerides 53 0 - 150 mg/dL 05/17/19 5:45 PM EDT [facility] HDL 51 40 - 60 mg/dL 05/17/2023 5:45 PM EDT [facility] Comment: An HDL cholesterol less than 40 mg/dL is low and constitutes a coronary heart disease risk factor. An HDL cholesterol greater than 60 mg/dL is a negative risk factor for coronary heart disease. LDL Calculated 94 <100 mg/dL 05/17/2023 5:45 PM EDT [facility] VLDL Cholesterol Calculated 11 Not Established mg/dL 05/17/2023 5:45 PM EDT [facility] Blood BLOOD SPECIMEN / Unknown 05/17/2023 11:24 AM EDT 05/17/2023 4:58 PM EDT us Greg Esqueda MD CHEMISTRY ORDERABLES Final Resu lt [facility] [address] [facility] [place] [address], [facility] [phone] * Hemoglobin A1C (12/08/2022 8:56 AM EDT) Hemoglobin A1C 5.1 See comment % 12/08/2022 12:36 PM EDT [facility] Comment: Comment: Diagnosis of Diabetes: > or = 6.5% Increased risk of diabetes (Prediabetes): 5.7-6.4% Glycemic Control: Non Adults: <7.0% : <6.0% Estimated Avg Glucose 99.7 mg/dL 12/08/2022 12:36 PM EDT [facility] Blood BLOOD SPECIMEN / Unknown 12/08/2022 8:56 AM EDT 12/08/2022 9:36 AM EDT [facility] - 12/08/2022 12:36 PM EDT Collection has been rescheduled by [facility] at 12/08/2022 04:36 Reason: No suitable vein for blood draw Collection has been rescheduled by [facility] at 12/08/2022 06:02 Reason: No suitable vein for venipuncture Collection has been rescheduled by [facility] at 12/08/2022 07:37 Reason: No sutibuble vein called Maya us Madeline Graff PA-C CHEMISTRY ORDERABLES Final Result [facility] [address] [place] [address] * HIV Screen (12/06/2019 3:40 PM EDT) HIV Ag/Ab Non-Reacti ve Non-reacti ve 12/07/2019 10:25 AM EDT [facility] HIV-1 Antibody Non-Reacti ve Non-reacti ve 12/07/2019 10:25 AM EDT [facility] HIV ANTIGEN Non-Reacti ve Non-reacti ve 12/07/2019 10:25 AM EDT [facility] HIV-2 Ab Non-Reacti ve Non-reacti ve 12/07/2019 10:25 AM EDT [facility] BLOOD SPECIMEN / Unknown 12/06/2019 3:40 PM EDT 12/07/2019 3:09 AM EDT [facility] - 12/07/2019 10:21 AM EDT Performed at: [facility] [address] [place] [address], [place] [address] us Sarkis William MD IMMUNOLOGY ORDERABLES Final Res ult [facility] [address] [place] [address], [facility] [phone] from Last 3 Months or Most Recently Relevant to Health Maintenance Insurance [employer] MEDICAID [place] Advance Directives * Full Code (Latest Code Status on File) Date Activated Date Inactivated Comments 05/17/2023 3:10 AM 05/17/2023 6:04 PM * Full Code Date Activated Date Inactivated Comments 04/20/2023 10:56 AM 04/20/2023 3:49 PM * Full Code Date Activated Date Inactivated Comments 04/15/2023 10:37 PM 04/16/2023 1:41 PM * Full Code Date Activated Date Inactivated Comments 12/06/2022 9:50 AM 12/09/2022 1:17 AM * Full Code Date Activated Date Inactivated Comments 09/14/2022 3:01 PM 09/15/2022 2:44 PM
--- OUTSIDE RECORDS SUMMARY | 2024-10-12 22:24 | XMS_ITS | Clinical Summary ---
Author Organization [facility] Address [address] [place] [address] Care Team Providers Care Bus Attendant Name Role Phone Ry Messina MD Unavailable [phone] Jace aJcome MD Primary Care Provider [phone] Allergies Active Allergy Reactions Criticality Noted Date [...] tongue 2 (two) times daily. Filled 12/19/23 [facility] ([place] [address]) Active buprenorphine- naloxone (SUBOXONE) 2-0.[address] 2 Film under the tongue. Filled 12/20/23 [facility] ([place] [address]) 4 Active polyethylene glycol (GLYCOLAX,MARTELL LAX) 17 [...] without o bstruction or gangrene 05/27/2013 09/21/2018 Encounters Date Type Department Care Team Description 08/25/2024 9:59 PM EDT - 08/25/2024 11:33 PM EDT Emergency [facility] Emergency Department [address] [place] [address] Stas Davis MD Procedure and treatment not carried out due to patient leaving prior to being seen by health care provider [Z53.21] Discharge Disposition: Left Against Medical Advice 08/22/2024 7:52 PM EDT - 08/22/2024 9:08 PM EDT Emergency [facility] Emergency Department [address] [place] [address] Royce Crenshaw MD Discharge Disposition: Left Against Medical Advice 08/01/2024 3:19 PM EDT - 08/01/2024 6:33 PM EDT Emergency [facility] Emergency Department [address] [place] [phone] Kaycee Jo MD Chest pain, unspecified [R07.9] Discharge Disposition: Home or Self Care from Last 3 Months Immunizations Immunization Administration Dates Next Due COVID-19 mRNA Vaccine (Pfizer EUA 12+) Purple Ca p 04/02/2020,03/12/2020 Family History Relation Name Status Comments Brother na Alive Daughter 1 na Alive Daughter 2 Alive Daughter 3 Alive Daughter 4 Alive Father na Alive Maternal Aunt na Alive Maternal Grandfather na Alive Maternal Grandmother na Alive Maternal Uncle na Alive Mother na Alive Paternal Aunt na Alive Paternal Grandfather na Alive Paternal Grandmother na Alive Paternal Uncle na Alive Sister na Alive Son 1 na Alive Son 2 Alive Social History Tobacco Use Types Packs/Day [...] car, in a tent, in an overnight intermediate, or temporarily in someone else's home (i.e. [...] car, in a tent, in an overnight intermediate, or temporarily in someone else's home (i.e. [...] Mass Index 36.26 05/03/2024 6:26 PM EDT Plan of Treatment Health Maintenance Due Date Last Done Comments Pneumococcal 0-49 (1 of 2 - PCV) 2000 HPV (1 - 3-dose SCDM series) 2008 COVID-19 Vaccine (3 - 2023-2 5 season) 2023 04/02/2020, 03/12/2020 Influenza Vaccine (#1) 2024 DTap,Tdap,and Td (2 - Td or Tdap) 12/05/2029 12/06/2019 RSV Vaccine (60+ or ) (1 - 1-dose 75+ series) 2056 Meningococcal conjugate bette nt 4 (MCV4) Aged Out No longer eligible b ased on patient's age to complete this topic RSV Immunization (<20 months) Aged Out No longer eligible based on patient's age to complete this topic Medical Devices Implanted Type Area Financial Sales Advisor Device Identifier Shelf Expiration Date Model / Serial / Lot Mesh Ventralight Ellipse 8x10 - [id number] Implanted:Qty: 1 on 09/14/2018 by Solomon Prince MD at [facility] N/A: Abdomen BARD DAVOL 03/20/2020 [id number] / / [id number] Procedures Procedure Name Priority Date/Time Associated Diagnosis [...] recommended by the National Kidney Foundation - [place] Society of Nephrology Task Force. Tested at [address] [address] Whole Blood 08/01/2024 5:19 PM EDT 08/01/2024 5:32 PM EDT us Kaycee Jo MD LAB BLOOD ORDERABLES Final Result [facility] [address] [place] [address] CHEMISTRY HEMATOLOGY [address] [place] [address] * HS Troponin I (08/01/2024 5:19 PM EDT) Only the most recent of2 resultswithin the time period is included. HS TROPONIN I <3 <20 ng/L [facility] Comment: Interpretive Guidelines: LOW RISK: <3 ng/L or Delta <4 and below 20 ng/L LOW INTERMEDIATE RISK: <20 ng/L HIGH INTERMEDIATE RISK: >/= 20 ng/L HIGH RISK: >/=88 ng/L or Delta >/=22 Tested at [address] [address] Whole Blood 08/01/2024 5:19 PM EDT 08/01/2024 5:24 PM EDT Kaycee Jo MD LAB BLOOD ORDERABLES Final Result Performing Organization Address City/State/[facility] Co de Phone Number [facility] [address] [place] [address] EMERGENCY DEPARTMENT [address] [address] * XR CHEST AP PORTABLE (08/01/2024 3:58 PM EDT) Anatomical Region Laterality Modality Chest Digital Radiogra phy 08/01/2024 3:59 PM EDT Impressions 08/01/2024 3:59 PM EDT No significant abnormality Narrative 08/01/2024 3:59 PM EDT HISTORY: Chest pain COMPARISON: 05/25/2024 NOTE: If there are questions about the content of this report, please contact [facility] radiology by calling [phone] FINDINGS: LINES/DEVICES: None LUNGS/PLEURA: Unremarkable HEART: Unremarkable MEDIASTINUM/JERRY: Unremarkable BONES: Unremarkable OTHER: None Procedure Note Syed June MD - 08/01/2024 HISTORY: Chest pain COMPARISON: 05/25/2024 NOTE: If there are questions about the content of this report, pleasecontact [facility] radiology by calling [phone] FINDINGS: LINES/DEVICES: None LUNGS/PLEURA: Unremarkable HEART: Unremarkable MEDIASTINUM/JERRY: Unremarkable BONES: Unremarkable OTHER: None IMPRESSION No significant abnormality Kaycee Jo MD RAD Final Resul t * B Natriuretic Peptide (08/01/2024 3:58 PM EDT) [facility] B NATRIURETIC PEP 17 0 - 23 pg/mL CHEMISTRY HEMATOLOGY Comment: BNP levels less than or equal to 100 are livestock sales representative of normal values in patients without CHF. While a negative BNP value makes the diagnosis of CHF unlikely, it does not exclude other potentially serious conditions such as acute coronary syndrome, asthma, COPD, or pulmonary embolism. BNP was measured by the Moglue Access BNP method. Natriuretic peptide assays are not currently standardized and results from one assay method cannot be reliably converted or compared to those obtained by another method. Tested at [place] [id number] 08/01/2024 3:58 PM EDT 08/01/2024 4:07 PM EDT Kaycee Jo MD LAB BLOOD ORDERABLES Final Result [facility] [address] [place] [address] CHEMISTRY HEMATOLOGY [address] [place] [address] * D Dimer Quantitative (08/01/2024 3:58 PM EDT) [facility] D DIMER QUANTITATIVE 0.37 <0.5 mcg/mL FEU [...] , and advancing patient age. Tested at [facility] [address] [facility] [address] Whole Blood 08/01/2024 3:58 PM EDT 08/01/2024 4:14 PM EDT Kaycee Jo MD LAB BLOOD ORDERABLES Final Result Performing Organization Address City/[facility]/ZIP Co de Phone Number [facility] [address] [place], [place] [id number] CHEMISTRY HEMATOLOGY [address] [place] [address] * (ABNORMAL) CBC w/ Diff (08/01/2024 3:58 [...] BASOPHILS 1 % CHEMISTRY HEMATOLOGY Comment:Tested at [facility] [address] [facility] [place] [address] Whole Blood 08/01/2024 3:58 PM EDT 08/01/2024 4:07 PM EDT Kaycee Jo MD LAB BLOOD ORDERABLES Final Result Performing Organization Address City/[facility]/ZIP Co de Phone Number [facility] [id number] [place] [address] CHEMISTRY HEMATOLOGY [address] [place] [address] * ECG 12 lead (08/01/2024 2:43 PM [...] QTcF 432 ms TH TRACEMASTER QRS Horizontal [place] 6 deg TH TRACEMASTER QRS AXIS 33 deg TH TRACEMASTER I-40 Horizontal [place] 56 deg TH TRACEMASTER I-40 FRONT AXIS 92 deg TH TRACEMASTER T-40 Horizontal [place] -22 deg TH TRACEMASTER T-40 Front [place] 13 deg TH TRACEMASTER T Horizontal [place] 24 deg TH TRACEMASTER T WAVE AXIS 55 deg TH TRACEMASTER S-T Horizontal [place] 54 deg TH TRACEMASTER S-T Front [place] 104 deg TH TRACEMASTER ECG IMPRESSION - OTHERWISE NORMAL ECG - TH TRACEMASTER ECG IMPRESSION ST-Sinus tachycardia-r ate>99 TH TRACEMASTER ECGGUID [id number] TH TRACEMASTER 08/01/2024 2:43 PM EDT us Kaycee Jo MD ECG ORDERABLES Final Resul t TH TRACEMASTER from Last 3 Months Insurance [facility] MEDICAID on file Advance Directives * Full Code (Latest Code Status on File) Date Activated Date Inactivated Comments 12/04/2022 6:12 AM 12/04/2022 10:47 AM * Full Code Date Activated Date Inactivated Comments 11/30/2019 6:25 AM 12/02/2019 9:32 PM * Full Code Date Activated Date Inactivated Comments 06/02/2018 10:09 PM 06/05/2018 3:03 PM * Full Code Date Activated Date Inactivated Comments 04/30/2015 1:36 AM 05/01/2015 2:00 PM * Full Code Date Activated Date Inactivated Comments 05/27/2013 12:19 AM 05/29/2013 3:32 PM Care Teams Bus Attendant Relationship Specialty Start Date End Date Jace Jacome MD PCP - General Internal Medicine 05/03/24 Ry Messina MD Neurosurgery 06/30/20
--- OUTSIDE RECORDS SUMMARY | 2024-10-12 22:24 | XMS_ITS | Encounter Summary ---
Author Organization [facility] Address [address], [address] [place] [address] Care Team Providers Care Hub Bander Name Role Phone Unavailable Primary Care Provider Unavailabl e Encounter Details Date Type Department Care Team (Latest Contact Info) Description 01/24/2021 Transcribe Orders [facility] [address] [place] [address] Nina Garg, ASSISTANT FACILITY MANAGER - ROLL [employer]NER Lump or mass in breast (Primary Dx) Social History Tobacco Use Types [...] as of this encounter Visit Diagnoses Diagnosis Lump or mass in breast- Primary documented in this encounter Additional Health Concerns Infection Onset Date Last Indicated Resolved Time C-diff Rule Out 08/27/2022 08/27/2022 08/27/2022 2 :36 PM EDT COVID-19 (Rule Out) 12/03/2022 12/03/2022 12/04/19 8:26 PM EDT C-diff Rule Out Comment: [...]
[2024-10-12 23:21] VITALS: BP 134/69; PULSE 81; TEMP 37; O2SAT 96; BMI 35.3
--- NOTE | 2024-10-13 00:08 | PC.NURSE ---
Complains of itching to trunk, bilateral arms and legs and face, no redness, swelling or open areas noted.
--- NOTE | 2024-10-13 00:36 | ED.SKABFB1 ---
HPI - Skin/Abscess/Foreign Bdy General Chief complaint: Skin/Abscess/Foreign Body Stated complaint: SCABIES/ WAS TREATED/ CAME BACK WORSE Time Seen by Provider: 10/13/24 00:32 Source: patient Mode of arrival: walk-in Limitations: no limitations History of Present Illness HPI narrative: patient states he is at the detox treatment center and there is a breakout of scabies and he is sure he has scabies states he is itching on his hands and face. No other symptoms Related Data Home Medications ?Medication ?Instructions ?Recorded ?Confirmed gabapentin 100 mg capsule mg 10/12/24 Allergies Allergy/AdvReac Type Severity Reaction Status Date / Time No Known Drug Allergies Allergy Verified 10/12/24 23:21 Review of Systems ROS Status of ROS 10 or more systems reviewed and unremarkable except as noted in history and below PFSH PFSH Social History Little interest or pleasure in doing things: not at all Feeling down, depressed, or hopeless: not at all Exam Constitutional Vital Signs, click to edit/add: Last Vital Signs Temp 98.6 F 10/12/24 23:21 Pulse 81 10/12/24 23:21 Resp 16 10/12/24 23:21 BP 134/69 10/12/24 23:21 Pulse Ox 96 10/12/24 23:21 O2 Del Method Room Air 10/12/24 23:21 Common normals: no apparent distress, average body habitus, oriented x3, no limitations, healthy appearing, alert and well nourished [facility] Common normals: normocephalic and head/scalp atraumatic Eye Common normals: PERRL and EOMs intact bilaterally Respiratory Common normals: normal respiratory effort, no retractions and no use of accessory muscles Cardio Common normals: regular rate and regular rhythm Extremity Other: old well healed scars on his extremities. no definite lesions on his hands except for excoriations Neuro Common normals: oriented x3, CN's II-XII intact bilaterally, moves all extremities and no focal motor deficits Psych Appearance: grossly normal Course Vital Signs Vital signs: Vital Signs Temperature 98.6 F 10/12/24 23:21 Pulse Rate 81 10/12/24 23:21 Respiratory Rate 16 10/12/24 23:21 Blood Pressure 134/69 10/12/24 23:21 Pulse Oximetry 96 08/22/25 23:21 Oxygen Delivery Method Room Air 10/12/24 23:21 Temperature 98.6 F 10/12/24 23:21 Pulse Rate 81 10/12/24 23:21 Respiratory Rate 16 10/12/24 23:21 Blood Pressure 134/69 10/12/24 23:21 Pulse Oximetry 96 10/12/24 23:21 Oxygen Delivery Method Room Air 10/12/24 23:21 MDM - Skin/Abscess/Foreign Bdy MDM Narrative Medical decision making narrative: patient presents with exposure by history to scabies. No definite lesions seen but does have excoriations. Will plan to treat with ivermectin and elimite cream Discharge Plan Discharge Chief Complaint: Skin/Abscess/Foreign Body Clinical Impression: Scabies exposure Patient Disposition: Home, Self-Care Prescriptions / Home Meds: No Action gabapentin 100 mg capsule Print Language: Slovenian Instructions: Scabies (ED) Referrals: Umberto Durant MD [Primary Care Provider] - 1 week
== END 2024-10-13 00:56 | disposition home or self-care (01) ==
PROVIDERS: Emergency Provider Internal Medicine; PCP Urology
DX: Z20.7 Contact with and (suspected) exposure to pediculosis, acariasis and other infestations (principal)
CPT/HCPCS: 99283